=== PATIENT | female | born 1945 | race Caucasian/White ===

== ENCOUNTER 2016-06-26 05:10 | Inpatient (IN) | payer OTHER ==
[2016-06-03 15:13] LABS: BASO % 0.2 %; BASO ABS # 0.02 K/uL (0-0.2); COMPLETE YES; EOS % 3.3 %; HEMATOCRIT 43.7 % (37-47); IG% 0.2 %; LYMPH % 22.6 %; LYMPH ABS # 2.06 K/uL (1.2-3.4); MEAN CELL VOLUME 88.3 fL (80-100); MEAN CORPUSCULAR HEMOGLOBIN 29.9 pg (25-34); MEAN CORPUSCULAR HGB CONC 33.9 g/dl (32-36); MEAN PLATELET VOLUME 11.5 fL (7.4-10.4); MONO % 9.6 %; NEUT % 64.1 %; PLATELET COUNT 267 K/uL (130-400); RED BLOOD COUNT 4.95 M/uL (4.2-5.4); WHITE BLOOD COUNT 9.12 K/uL (4.8-10.8)
[2016-06-03 15:15] LABS: URINE APPEARANCE CLEAR (CLEAR); URINE BILIRUBIN NEG (NEG); URINE COLOR YELLOW; URINE EPITHELIAL CELL AUTO >30 /lpf (0-5); URINE NITRITE NEG (NEG); URINE SPECIFIC GRAVITY 1.002 (1.000-1.030); UROBILINOGEN NEG (NEG)
[2016-06-03 15:19] LABS: BLOOD UREA NITROGEN 17 mg/dl (7-18); BUN/CREATININE RATIO 18.3 (10-20); CALCIUM 8.7 mg/dl (8.5-10.1); CARBON DIOXIDE 23 mmol/L (21-32); CHLORIDE 107 mmol/L (98-107); CREATININE 0.92 mg/dl (0.60-1.20); GLUCOSE 97 mg/dl (70-99); POTASSIUM 4.3 mmol/L (3.5-5.1); SODIUM 141 mmol/L (136-145)
[2016-06-03 15:22] LABS: PARTIAL THROMBOPLASTIN RATIO 1.1; PROTHROMBIN TIME (PATIENT) 10.2 SECONDS (9.0-12.0)
[2016-06-03 15:29] LABS: MANUAL MICROSCOPIC REQUIRED? NO; REVIEW REQ? NO
--- NOTE | 2016-06-05 15:38 | HISTORY & PHYSICAL EXAMINATION ---
DATE OF ADMISSION: 06/26/2016 CHIEF COMPLAINT: Left hip pain. HISTORY OF PRESENT ILLNESS: This 71-year-old white female presents with complaints of left hip pain for over 2 years. Her pain had been stable until October of 2015. It became significantly worse at that time. She is now ambulatory with an antalgic gait. Pain is worse with weightbearing and is affecting her ADLs. She denies any numbness or tingling. She elects to proceed with left total hip arthroplasty in hopes of alleviating her pain. She previously had a right total hip arthroplasty 02/28/2016 and has done well with this. X-rays have been obtained. PAST MEDICAL HISTORY: Significant for osteoarthritis, GERD, and obesity. PREVIOUS SURGERIES: Left tib-fib ORIF 2000, tubal ligation in 1970, right total hip arthroplasty 02/28/2016. CURRENT MEDICATIONS: Benadryl b.i.d., ibuprofen 6 tablets daily, Percocet p.r.n., aspirin 81 mg daily. ALLERGIES: KNOWN ALLERGY TO MORPHINE AND AMPICILLIN. THESE CAUSE HIVES. She has had Ancef, fentanyl, Demerol, Percocet, and Dilaudid without issue. FAMILY HISTORY: Noncontributory. SOCIAL HISTORY: The patient is . Retired. No tobacco use, occasional ETOH use. REVIEW OF SYSTEMS: Significant for above stated conditions, otherwise unremarkable. PHYSICAL EXAMINATION: GENERAL: Well-developed, well-nourished elderly white female in no acute distress. Sitting on a bed. Alert and oriented. SKIN: Warm and dry with good turgor. No rashes or lesions. No ecchymosis or erythema. HEENT: Normocephalic, atraumatic. Eyes: PERRLA, EOMI. Nares patent bilaterally without turbinate enlargement. Oropharynx without erythema or exudate. No lesions noted. Uvula midline. Oral mucosa moist. Partial upper bridge is noted. LUNGS: Clear to auscultation bilaterally. No crackles, rhonchi or wheezing. Good air movement. HEART: RRR. No MGR. ABDOMEN: Bowel sounds present x4, soft, nontender to palpation. No organomegaly. MUSCULOSKELETAL: Left hip has no obvious asymmetry or deformity. There is discomfort with palpation over the anterior flexion crease, extending to the trochanter. Limited motion of the hip secondary to pain. Hip flexion to just above 90 degrees before onset of discomfort. Ambulatory with an antalgic gait. NEUROLOGIC: Gross sensation is intact across the left leg by soft touch. Cranial nerves II-XII are intact. DATA: Radiographic images previously obtained show end-stage DJD of the left hip. She has periarticular osteophytes, subchondral sclerosis, and joint space narrowing. IMPRESSION: Left hip end-stage degenerative joint disease. PLAN: Informed written consent was obtained to proceed with left total hip arthroplasty. Postoperative prescriptions for Percocet and Coumadin will be provided at discharge from the hospital. She already has a walker. She would like to attend [facility] for a few days postop. She has a previous EKG and chest x-ray from her February surgery. Preoperative ultrasound of both lower extremities was ordered to rule out preoperative DVT, given her recent surgery. New labs were ordered.
[2016-06-20 09:39] VITALS: BMI 27.0
[2016-06-26] VITALS (8 sets, daily range): BP systolic 100–134; BP diastolic 60–83; PULSE 72–93; TEMP 36.3–37.4; O2SAT 94–100; Ht 165.1 cm; Wt 77.5 kg
[~2016-06-26] VITALS: Ht 165.1 cm; Wt 77.5 kg
[~2016-06-26 05:10] MED LIST: ACET-1311 PO; ASPI-428 PO; B-COTAB18 PO; BND25 PO; CALC500C70 PO; CHOL100010 PO; CYAN500S5 PO; FERR18TA2 PO; IBUP-1459 PO; MAGNESIUM PO; MOME50SP5 NAE; NIAC50TA9 PO; POTA99TA PO; PYRI100T4 PO; THIA100T11 PO; VITAMIN K PO; ZINC1CAP PO; [UNRECOGNIZED DRUG - CODE] PO
[2016-06-26] MEDS ORDERED: CEFAZOLIN 2000 MG/60 ML D5W 60 ML IV SCH (06:00)
[2016-06-26] MEDS ORDERED: LACTATED RINGER'S 1000ML 1,000 ML IV SCH ×2 (06:00)
[2016-06-26] MEDS ORDERED: ROPIVACAINE 5MG/ML 30 ML 150 MG, BUPIVACAINE/EPINEPHR 0.5% MPF 30 ML, KETOROLAC TROMETH... INFIL SCH ×7 (06:00)
[2016-06-26] MEDS ORDERED: TRANEXAMIC ACID INJ 1,000 MG in SODIUM CHLORIDE 0.9% 100ML 100 ML IV SCH (06:00)
[2016-06-26] MEDS ORDERED: LACTATED RINGER'S 1000ML 500 ML IV ONE (06:00)
[2016-06-26] MEDS ORDERED: FENTANYL CITRATE INJ 50 MCG/1 ML 2 ML VIAL ONE (06:09)
[2016-06-26] MEDS ORDERED: MIDAZOLAM HCL 1 MG/ML 2ML VIAL ONE ×2 (06:09)
[2016-06-26] MEDS ORDERED: PROPOFOL IV EMULSION 10 MG/ML 20 ML VIAL IV ONE (06:10)
[2016-06-26] MEDS ORDERED: SUCCINYLCHOLINE CHLORIDE 20 MG/ML 10 ML VIAL IV ONE (06:15)
[2016-06-26] MEDS ORDERED: LIDOCAINE 2% 20 MG/ML 5ML SYR ONE (06:15)
[2016-06-26] MEDS ORDERED: ROCURONIUM BROMIDE 10 MG/ML 5 ML VIAL ONE (06:15)
--- NOTE | 2016-06-26 06:22 | History & Physical Bridge Note ---
H&P Re-Evaluation Bridge Note: I have examined the patient, reviewed the History & Physical and in the interval since the performance of the History & Physical I have noted the following changes of clinical significance: No changes noted
[2016-06-26] MEDS ORDERED: BUPIVACAINE 0.5 % 5 MG/1 ML PF 10ML VIAL ONE (06:24)
[2016-06-26] MEDS ORDERED: ORTHO JOINT ANESTHETIC ONE (06:26)
[2016-06-26] MEDS ORDERED: ONDANSETRON INJ 2 MG/ML 2 ML VIAL ONE (06:41)
[2016-06-26] MEDS ORDERED: ATROPINE SULFATE 0.1 MG/ML 5ML SYR IV PRN (07:15)
[2016-06-26] MEDS ORDERED: PHENYLEPHRINE 100MCG/ML 5ML SYR IV PRN (07:15)
[2016-06-26] MEDS ORDERED: ONDANSETRON INJ 2 MG/ML 2 ML VIAL IV PRN (07:15)
[2016-06-26] MEDS ORDERED: HYDROmorphone INJ 2 MG/ML SYR/VIAL IV PRN (07:15)
[2016-06-26] MEDS ORDERED: EpHEDrine SULFATE INJ 50 MG/ML AMP IV PRN (07:15)
[2016-06-26] MEDS ORDERED: PHENYLEPHRINE 100MCG/ML 5ML SYR ONE (07:39)
[2016-06-26] MEDS ORDERED: PHENYLEPHRINE HCL INJ 10 MG/ML VIAL ONE (07:39)
[2016-06-26] MEDS ORDERED: POVIDONE-IODINE OP SOLN 30 ML BTL TOP ONE (08:11)
--- NOTE | 2016-06-26 08:23 | [facility] Post Operative Brief Note ---
Immediate Operative Summary Operative Date Jun 26, 2016. Pre-Operative Diagnosis Left Hip Degenerative Joint Disease Post-Operative Diagnosis Same as Preop Procedure(s) Performed Left Total Hip Arthroplasty Uncemented Surgeon Dr. Crockett Waterproof Coating Machine Tender Surgeon(s) Roman Aguilar PA-C Estimated Blood Loss 100 ML Findings severe djd Fluids (cc crystalloids) 1100cc Specimens A. Left femoral Head Drains none Anesthesia spinal Complication(s) None Disposition Recovery Room / PACU
[2016-06-26] MEDS ORDERED: ALUMINUM/MAGNESIUM/SIMETH (MAALOX MAX) 30 ML UDC PO PRN (08:30)
[2016-06-26] MEDS ORDERED: HYDROmorphone INJ 1 MG/ML SYR IV PRN (08:30)
[2016-06-26] MEDS ORDERED: MAGNESIUM HYDROXIDE SUSP 30 ML UDC PO PRN (08:30)
[2016-06-26] MEDS ORDERED: BISACODYL 10 MG SUPP PR PRN (08:30)
[2016-06-26] MEDS ORDERED: DiphenhydrAMINE HCL 50 MG/ML VIAL IV PRN (08:30)
[2016-06-26] MEDS ORDERED: ACETAMINOPHEN 325 MG TAB PO PRN (08:30)
[2016-06-26] MEDS ORDERED: METOCLOPRAMIDE HCL INJ 5 MG/ML 2 ML VIAL IV PRN (08:30)
--- NOTE | 2016-06-26 08:41 | OPERATIVE REPORT ---
DATE OF OPERATION: 06/26/2016 PREOPERATIVE DIAGNOSIS: Osteoarthritis left hip. POSTOPERATIVE DIAGNOSIS: Same. OPERATION PERFORMED: Noncemented left total hip replacement. SURGEON: Dr. Crockett. BROADCAST OPERATIONS ENGINEER: Roman Aguilar PA-C. No resident or fellow available. PERIOPERATIVE SITUATION: Medically cleared female with intractable hip pain. She has failed conservative management. Physical exam, x-rays, MRI scan are consistent with the above diagnosis. They reveal substantial joint space narrowing, periarticular osteophyte formation and subchondral cysts. She had a total hip done on the other side and has done well. SUMMARY OF IMPLANTS: Size 52 acetabular shell sector cup, 6.5 x 30 screw, 6.5 x 15 screw, hole eliminator, 36 x 52 neutral liner, 5 standard stem. Head is 36 + 8.5. ESTIMATED BLOOD LOSS: 100 mL. FLUIDS: 1300 mL of crystalloid. OPERATION AND FINDINGS: PROCEDURE: The patient appropriately identified, site verified, consent verified, 2 grams of Ancef confirmed as being given. The left lower extremity was prepped and draped with the patient in the right lateral decubitus position. A posterior approach of the hip was utilized. Sharp dissection carried through skin and blunt dissection down to the fascia. The fascia was then incised under direct vision. Traction was then placed, short external rotators identified and released and capsule then teed. The hip dislocated, the femoral neck resected. Labrum excised. There was gross disease throughout both the head and the cup. Serial reaming carried up to a 52 and a 52 cup impacted into appropriate position. It was then secured with a 6.5 x 30 screw and a 6.5 x 15 screw. A trial liner then seated. The proximal femur was then delivered into the wound with flexion and internal rotation and the proximal femur prepared with the box spinner, canal finder, lateralizing rasp, and broaches to a size 5. A size 5 was trialed and 8.5 brought the leg lengths to within millimeters of equality. The hip was very stable in all planes. The hip was then dislocated. All remaining trial elements were removed, irrigated with Betadine, Pulsavac saline and then the permanent hole eliminator seated, the permanent liner seated, permanent head and neck seated and the hip reduced. It was stable in all planes. Leg lengths were equal. The wound was then irrigated one final time with Betadine and then Pulsavac and then short external rotators were repaired with heavy Vicryl. The fascial layer with heavy Vicryl, subcutaneous layer with 2-0 Vicryl and Orthomix injected into this layer and then the skin closed with stainless steel clips. Appropriate dressing applied and the patient was transferred to the recovery room in satisfactory condition having tolerated the procedure well. DVT prophylaxis per protocol. I attest to the content of the Intraoperative Record and any orders documented therein. Any exceptio ns are noted below.
--- NOTE | 2016-06-26 08:54 | Anesthesiology Progress Note ---
Anesthesia Post Op Note Date & Time Jun 26, 2016 at 08:54 Vital Signs Pain Intensity: 0 Vital Signs Past 12 Hours Date Time Temp Pulse Resp B/P Pulse Ox O2 Delivery O2 Flow Rate FiO2 06/26/16 08:50 36.5 79 14 101/63 99 Nasal Cannula 4 06/26/16 08:40 87 14 106/60 97 Nasal Cannula 4 06/26/16 08:30 85 14 100/58 100 Nasal Cannula 4 06/26/16 08:24 36.1 89 14 122/61 98 Nasal Cannula 4 06/26/16 05:37 36.8 93 18 117/74 95 Room Air Notes Mental Status: alert / awake / arousable, participated in evaluation Pt Amnestic to Procedure: Yes Nausea / Vomiting: adequately controlled Pain: adequately controlled Airway Patency, RR, SpO2: stable & adequate BP & HR: stable & adequate Hydration State: stable & adequate Anesthetic Complications: no major complications apparent
[2016-06-26] MEDS ORDERED: NON-FORMULARY MEDICATION (Potassium 99 MG) PO SCH (09:00)
--- NOTE | 2016-06-26 09:02 | DIAGNOSTIC IMAGING REPORT ---
PELVIS 1 OR 2 VIEW ROUTINE CLINICAL HISTORY: s/p Left hip CHOLO postoperative evaluation COMPARISON: 02/28/2016 DISCUSSION: Pre-existing total right hip arthroplasty. Mild heterotopic bone formation. Acute placement of a total left hip prosthetic. In position. No evidence for acetabular protrusion. Expected postoperative soft tissue change. IMPRESSION: Anatomic alignment status post total left hip replacement Electronically signed by: Bishop Shine M.D. 06/26/2016 9:01 AM Dictated Date/Time: 06/26/2016 9:00 AM
[2016-06-26] MEDS ORDERED: FLUTICASONE PROPIONATE NA SPR 16 GM BTL NAE PRN (09:45)
[2016-06-26] MEDS ORDERED: D5W AND 1/2NSS + 20MEQ KCL 1,000 ML IV SCH (09:45)
[2016-06-26] MEDS: ASPIRIN 81 MG ECTAB PO SCH (09:52)
[2016-06-26] MEDS: MULTIVITAMIN TAB PO SCH (09:52)
[2016-06-26] MEDS: NIACIN 50 MG TAB PO SCH (09:52)
[2016-06-26] MEDS: PANTOprazole SOD 40 MG TAB PO SCH (09:52)
[2016-06-26] MEDS: DOCUSATE SODIUM 100 MG CAP PO SCH ×2 (09:52→22:23)
[2016-06-26] MEDS: ACETAMINOPHEN IV 1,000 MG in EMPTY BAG 0 ML IV SCH ×2 (09:53→18:12)
[2016-06-26] MEDS: KETOROLAC TROMETHAMINE 15 MG/ML VIAL IV. SCH ×2 (12:03→18:15)
[2016-06-26] MEDS: FERROUS GLUCONATE 324 MG TAB PO SCH ×2 (12:20→18:11)
--- NOTE | 2016-06-26 12:43 | PROGRESS NOTE ---
DATE: 06/26/2016 Postop check status post left total hip replacement. The patient has already been up twice to the bathroom and is moving well. Neurovascular check is without any complaints of numbness or tingling. She notes no chest pain, shortness of breath, fever, chills, headache, nausea or vomiting. Vital signs are stable. She is afebrile. Wound dressing clean, dry and intact. Neurovascular checked, femoral sciatic nerve is good. X-ray postop looks excellent. ASSESSMENT: Doing well. She already ate and drank. Will have her discontinue the IV, Hep-Lock it and then continue p.o. Coumadin per nomogram.
--- NOTE | 2016-06-26 13:32 | OPERATIVE REPORT ---
DATE OF OPERATION: 06/26/2016 PREOPERATIVE DIAGNOSIS: Left hip end-stage degenerative joint disease. POSTOPERATIVE DIAGNOSIS: Left hip same. PROCEDURE: Left hip total hip arthroplasty using DePuy implants, uncemented plan. SURGEON: Dr. Crockett. WHITE LEAD GRINDER: Roman Aguilar PA-C. HISTORY OF PRESENT ILLNESS: This 71-year-old white female presented to the office with complaints of intractable left hip pain. She had tried conservative care measures including activity modification, physical therapy, and oral pain medication without improvement. Pain was affecting her ADLs. She elected to proceed with surgical intervention in hopes of alleviating her discomfort. Preoperative x-rays were obtained. OPERATION: The patient was administered spinal anesthetic and then taken to the operating room where she was given sedation. She was prepped and draped in the usual sterile fashion. Please see Dr. Crockett's operative report for specifics of the procedure. I was present for the entire case from initial patient positioning through final wound closure. Assistance was provided in tissue retraction, hemostasis, trial implant placement, final implant placement, hip reduction, and final wound closure. The patient was taken to the recovery room in satisfactory condition. I attest to the content of the Intraoperative Record and any orders documented therein. Any exceptio ns are noted below.
[2016-06-26] MEDS ORDERED: TRANEXAMIC ACID INJ 1,000 MG in SODIUM CHLORIDE 0.9% 100ML 100 ML IV ONE (14:30)
[2016-06-26] MEDS: CEFAZOLIN IV 2,000 MG in DEXTROSE 5% 50ML 50 ML IV SCH ×2 (14:37→22:23)
[2016-06-26] MEDS: ONDANSETRON INJ 2 MG/ML 2 ML VIAL IV PRN (15:16)
[2016-06-26] MEDS: OXYCODONE HCL IR 5 MG TAB (IMMEDIATE RELEASE) PO PRN (15:31)
[2016-06-26] MEDS ORDERED: WARFARIN SOD 5 MG TAB PO SCH (16:00)
[2016-06-26] MEDS ORDERED: WARF2TAB PO (16:05)
[2016-06-26] MEDS ORDERED: OXYC-57 PO (16:05)
[2016-06-27] MEDS: KETOROLAC TROMETHAMINE 15 MG/ML VIAL IV. SCH ×2 (00:43→05:43)
[2016-06-27] MEDS: ACETAMINOPHEN IV 1,000 MG in EMPTY BAG 0 ML IV SCH (02:09)
[2016-06-27 03:07] VITALS: BP 98/64; PULSE 84; TEMP 36.9; O2SAT 96
[2016-06-27 06:52] LABS: BASO % 0.1 %; BASO ABS # 0.01 K/uL (0-0.2); COMPLETE YES; EOS % 0.7 %; HEMATOCRIT 37.5 % (37-47); IG% 0.3 %; LYMPH % 9.9 %; MEAN CELL VOLUME 88.2 fL (80-100); MEAN CORPUSCULAR HEMOGLOBIN 29.4 pg (25-34); MEAN CORPUSCULAR HGB CONC 33.3 g/dl (32-36); MEAN PLATELET VOLUME 11.2 fL (7.4-10.4); MONO % 8.6 %; NEUT % 80.4 %; PLATELET COUNT 262 K/uL (130-400); RED BLOOD COUNT 4.25 M/uL (4.2-5.4); WHITE BLOOD COUNT 15.22 K/uL (4.8-10.8)
[2016-06-27] MEDS: OXYCODONE HCL IR 5 MG TAB (IMMEDIATE RELEASE) PO PRN ×2 (07:00→20:21)
--- NOTE | 2016-06-27 07:00 | PROGRESS NOTE ---
DATE: 06/27/2016 Postop day 1 status post left total hip replacement. The patient is comfortable, is moving well. Denies chest pain, shortness of breath, fever or chills. Denies headache, nausea, vomiting. Vital signs are stable. She is afebrile. Neurovascular check is normal. Hip motion is excellent. ASSESSMENT: Overall, doing well A.m. labs pending. Coumadin per nomogram. Continue PT, OT. Dressing change later today. Likely home with home health.
[2016-06-27 07:02] VITALS: BP 108/69; PULSE 85; TEMP 36.9; O2SAT 97
[2016-06-27 07:10] LABS: INR 1.1 (0.9-1.1); PROTHROMBIN TIME (PATIENT) 11.6 SECONDS (9.0-12.0)
--- NOTE | 2016-06-27 07:14 | DISCHARGE SUMMARY ---
DISCHARGE DATE: Evening of 06/27/16 versus morning of 06/28/16. CHIEF COMPLAINT: Left hip pain. HISTORY OF PRESENT ILLNESS: A 71-year-old female admitted for elective left total hip replacement. She tolerated the procedure well. She is ambulating well. PAST MEDICAL HISTORY: Remarkable for osteoarthritis, GERD, and obesity. PAST SURGICAL HISTORY: Include ORIF of tibia, tubal ligation, right total hip replacement. PREADMISSION MEDICATIONS: Include Benadryl b.i.d., ibuprofen daily, Percocet p.r.n., aspirin 81 daily. She will continue her Benadryl, her Percocet as needed, aspirin 81 mg daily, and Coumadin to keep INR 1.8-2.2. Discontinue the ibuprofen. ALLERGIES: MORPHINE, AMPICILLIN WHICH CAUSES HIVES. She has had Ancef, Fentanyl, Demerol, Percocet and Dilaudid without issue. FAMILY HISTORY: Noncontributory. SOCIAL HISTORY: Reveals she is , retired. No tobacco or alcohol use. REVIEW OF SYSTEMS: Reveals no chest pain, shortness of breath, fever or chills. Pertinent exam reveals an intact wound and neurovascular check normal. Hip located and moves well. Calves nontender. ASSESSMENT: Overall, doing well status post left total hip replacement. Discharge pending clearance with PT, OT either later today or on Friday morning. Discharge on 4 mg Coumadin per day, keep INR 1.8-2.2.
[2016-06-27 07:21] LABS: BUN/CREATININE RATIO 14.8 (10-20); CALCIUM 8.2 mg/dl (8.5-10.1); CREATININE 0.99 mg/dl (0.60-1.20)
[2016-06-27] MEDS ORDERED: DEXAMETHASONE INJ 10 MG in SYRINGE 0 ML IV ONE (07:30)
[2016-06-27] MEDS: FERROUS GLUCONATE 324 MG TAB PO SCH ×3 (08:30→17:43)
--- NOTE | 2016-06-27 08:30 | Discharge Instructions ---
Discharge Instructions Admission Reason for Admission: Left Hip Degenerative Joint Disease Discharge Discharge Diagnosis / Problem: Left hip s/p total hip replacement Discharge Goals Goal(s): Decrease discomfort, Improve function, Increase independence Activity Recommendations Activity Limitations: as noted below Lifting Limitations: gradually increase as tolerated Exercise/Sports Limitations: until after follow-up appointment Shower/Bathe: keep incision dry Driving or Machine Use: No driving until cleared by Dr. Crockett Weightbearing Status: Left weightbearing (as tolerated) . Instructions / Follow-Up Instructions / Follow-Up New Medicine: * You will likely be taking one or more of these medicines: 1. Percocet - Take, as directed, when you need it, every four to six hours to control your pain. 2. Iron Sulfate - Take three times each day for the month after surgery to help you replace the blood lost during surgery. 3. Coumadin - Thins your blood to lessen the chance of forming a blood clot. The dose of this is different for each person and is based on your blood tests that are done twice a week. * The most common side effects of pain medicine and iron are nausea and constipation. If nausea or constipation is too much of a problem or if you have any questions about your new medicines or doses, call [facility] at . We will try to help you manage these issues. VERY IMPORTANT TO READ AND REVIEW" Blood Clots and Blood Thinning Medicine: * You are given Coumadin during the immediate post-operative period to lessen the risk of blood clots forming in your legs and/or lungs. Coumadin is usually given for six weeks after surgery. * The prescription is for 2 mg tablets. At discharge, you should understand your dose and take it all at the same time every day, preferably after dinner. * You need to get your blood checked 1 - 2 times per week for six weeks, or as directed. * If your dose needs to change, we will call you. Do not take your medication on the day of the blood test until we call you. * If you don't hear from us after your blood draws, keep taking the same dose. Pain: * The immediate post-operative period after hip replacement surgery is often quite painful. * You are given a prescription for pain medicine. You should take it, as directed, when you need it, especially before physical therapy and before going to bed. Pain that interferes with sleep is very common and can last several months. * You will likely need pain medicine for the first two to four weeks. It will not stop all of the pain. The pain will lessen and as you feel better, you may change to milder pain medicine such as Tylenol. * The most common side effects of pain medicine are nausea and constipation, so don't take more than you need. Physical Therapy: * Follow the "Hip Precautions Instructions." * In some cases, the social studies teacher at the hospital will arrange to have a therapist come to your house for the first couple of weeks to help you learn these skills. * You need to practice on your own or with the help of a family member as needed. * When you learn these skills, most of the therapy can be done on your own. Home Exercise: * You were shown a series of exercises in the hospital. Do these exercises three to four times each day including the exercises you were shown in physical therapy. Walking: * Get up and walk several times each day. For the first four weeks, try not to stand or walk for more than one hour at a time. If you do stand or walk for more than one hour, you will not hurt anything, but your leg will likely swell. * As you feel comfortable, you may change from the walker or crutches to a cane and then to independent walking. SELF CARE INSTRUCTIONS AFTER TOTAL HIP REPLACEMENT Until the incision and soft tissues around your hip have healed, there is a possibility that the hip prosthesis could dislocate. A. Observe the following precautions to prevent dislocation: 1. Don't bend your hip greater than 90 degrees. 2. Avoid crossing your legs or ankles while standing or lying. 3. Sit with your feet placed 6 inches apart. 4. When sitting, keep your knees below your hips. Sit on a firm surface, avoid deep, soft chairs and couches. Use an elevated toilet seat in the bathroom. 5. Don't bend over at the waist. Use a long handled shoehorn and a sock aid to help you put on your shoes and socks. A underground truck operator can help you pick up driver objects that are too high or too low to reach. 6. Keep car riding to a minimum for at least one month after surgery. B. Your balance may be shaky for a while. Use crutches or a walker until directed by your doctor. C. Use hand rails when walking on stairs. D. Wear low heeled shoes with non-slip soles. E. Be sure that your floors are free of things that could trip you - throw rugs , electrical cords, small objects. Avoid wet and waxed floors, especially with crutches and canes. F. Try to walk several times a day with rest periods between. G. Continue with all the exercises taught to you in the hospital. Again, make walking a part of your daily routine. VERY IMPORTANT TO READ AND REVIEW A. Take Coumadin, or Lovenox (blood thinning medications) as directed by your doctor. If you are on Coumadin, have a pro-time (blood test) drawn according to your doctor's instructions. This will tell the doctor how well the Coumadin is thinning your blood. B. There are a few signs you need to watch for after you are home. If you notice any of the followin. Increased severe hip pain. Some pain is expected especially when you exercise. 2. Increased swelling in your leg or knee; pain or swelling of the calf muscle in either lower leg. 3. Any fluid drainage from the incision. 4. Shortness of breath or chest pain. TEDs/Elastic Stockings: * The white elastic stockings help limit swelling and prevent blood clots from forming in your legs. The more you wear them, the more they work. * Wear them for six weeks. Prevention of Infection: * Take antibiotics one hour before any dental cleaning, dental work, urological procedure, gastrointestinal procedure or any invasive surgery in order to prevent your new joint from getting infected. * You may get the antibiotics from the doctor performing the procedure or we will call in a prescription to the pharmacy of your choice. Call the office for a prescription at least 2 days prior to your appointment. Things to Watch For: * Drainage from the incision site that occurs more than one week after your surgery. * Severely increased leg pain or swelling. * Increased redness at the incision site. * Fever above 101 degrees Fahrenheit. * Unusual chest pain or shortness of breath. * Unusual pain or burning with urination. Current Hospital Diet Patient's current hospital diet: AHA Diet (Heart Healthy) Discharge Diet Recommended Diet: AHA Diet (Heart Healthy) Procedures Procedures Performed: Left Total Hip Arthroplasty Uncemented Pending Studies Studies pending at discharge: no Medical Emergencies . Who to Call and When: Medical Emergencies: If at any time you feel your situation is an emergency, please call 911 immediately. . Non-Emergent Contact Non-Emergency issues call your: Primary Care Provider, Surgeon Call Non-Emergent contact if: temperature is above 100.5, wound has increased drainage, wound has increased redness, wound has increased pain, you have any medication questions . "Provider Documentation" section prepared by Roman Aguilar PA-C. VTE Core Measure Inpt VTE Proph given/why not?: Warfarin (Coumadin), T.E.D. Stockings, SCD's
--- NOTE | 2016-06-27 08:33 | Orthopedic Progress Note ---
Orthopedic Progress Note Date of Service Jun 27, 2016. Subjective Post OP Day: 1 Reports: feeling well, nausea / vomiting (nauseated now, no vomiting), pain controlled w PO medications, Denies: SOB, chest pain, complaints, light headedness Objective calves soft nontender, N/V intact, hip located, capillary refill less than 2 sec., dressing C/D/I, incision C/D/I, A&O x3, toes mobile, CMS intact wound looks good, moderate drainage on dressings, no active bleeding Date Time Temp Pulse Resp B/P Pulse Ox O2 Delivery O2 Flow Rate FiO2 06/27/16 08:04 Room Air 06/27/16 07:02 36.9 85 16 108/69 97 Room Air 06/27/16 03:07 36.9 84 16 98/64 96 Room Air 06/26/16 23:53 37.1 76 17 101/63 97 Room Air 06/26/16 23:30 Room Air 06/26/16 15:22 37.4 72 17 134/83 95 Room Air 06/26/16 15:15 Room Air 06/26/16 12:19 83 114/63 94 06/26/16 11:03 36.4 74 17 121/75 100 Nasal Cannula 3.0 06/26/16 10:06 36.7 77 17 105/67 100 Room Air 3.0 06/26/16 09:31 36.3 75 17 100/60 98 Nasal Cannula 3.0 06/26/16 09:05 Nasal Cannula 2.0 06/26/16 09:05 Nasal Cannula 2.0 06/26/16 09:05 36.3 79 16 101/67 99 Nasal Cannula 2.0 06/26/16 08:57 77 14 109/63 100 Nasal Cannula 4 06/26/16 08:50 36.5 79 14 101/63 99 Nasal Cannula 4 06/26/16 08:40 87 14 106/60 97 Nasal Cannula 4 Laboratory Results 24 Hours: Test 06/27/16 05:20 White Blood Count 15.22 K/uL Red Blood Count 4.25 M/uL Hemoglobin 12.5 g/dL Hematocrit 37.5 % Mean Corpuscular Volume 88.2 fL Mean Corpuscular Hemoglobin 29.4 pg Mean Corpuscular Hemoglobin Concent 33.3 g/dl Platelet Count 262 K/uL Mean Platelet Volume 11.2 fL Neutrophils (%) (Auto) 80.4 % Lymphocytes (%) (Auto) 9.9 % Monocytes (%) (Auto) 8.6 % Eosinophils (%) (Auto) 0.7 % Basophils (%) (Auto) 0.1 % Neutrophils # (Auto) 12.26 K/uL Lymphocytes # (Auto) 1.50 K/uL Monocytes # (Auto) 1.31 K/uL Eosinophils # (Auto) 0.10 K/uL Basophils # (Auto) 0.01 K/uL Prothromb Time International Ratio 1.1 Prothrombin Time 11.6 SECONDS Assessment & Plan Assessment: post op day 1 Left total hip arthroplasty Plan: PT/OT today anticipate D/C to home tomorrow morning with home health coumadin per nomogram today dressing changed this morning-wound looks good Discharge Planning Discharge Planning: home with home health Pain Management: Percocet DVT Prophylaxis: TEDs, SCDs, Coumadin Therapy: Physical Therapy
[2016-06-27] MEDS: ONDANSETRON INJ 2 MG/ML 2 ML VIAL IV PRN (08:34)
[2016-06-27] MEDS: DOCUSATE SODIUM 100 MG CAP PO SCH ×2 (09:34→20:31)
[2016-06-27] MEDS: PANTOprazole SOD 40 MG TAB PO SCH (09:34)
[2016-06-27] MEDS: NIACIN 50 MG TAB PO SCH (09:38)
[2016-06-27] MEDS: MULTIVITAMIN TAB PO SCH (09:38)
[2016-06-27] MEDS: ASPIRIN 81 MG ECTAB PO SCH (09:38)
--- NOTE | 2016-06-27 09:51 | Anesthesiology Progress Note ---
Anesthesia Post Op Note Date & Time Jun 27, 2016 at 09:50 Vital Signs Pain Intensity: 2.0 Vital Signs Past 12 Hours Date Time Temp Pulse Resp B/P Pulse Ox O2 Delivery O2 Flow Rate FiO2 06/27/16 08:04 Room Air 06/27/16 07:02 36.9 85 16 108/69 97 Room Air 06/27/16 03:07 36.9 84 16 98/64 96 Room Air 06/26/16 23:53 37.1 76 17 101/63 97 Room Air 06/26/16 23:30 Room Air Notes Mental Status: alert / awake / arousable, participated in evaluation Pt Amnestic to Procedure: Yes Nausea / Vomiting: adequately controlled Pain: adequately controlled Airway Patency, RR, SpO2: stable & adequate BP & HR: stable & adequate Hydration State: stable & adequate Neuraxial Anesthesia: sensory block resolved Anesthetic Complications: no major complications apparent
[2016-06-27 11:34] VITALS: BP 110/70; PULSE 93; TEMP 36.9; O2SAT 96
[2016-06-27 15:28] VITALS: BP 104/70; PULSE 89; TEMP 36.9; O2SAT 96
[2016-06-27] MEDS ORDERED: WARFARIN SOD 5 MG TAB PO SCH (16:00)
[2016-06-27 22:48] VITALS: BP 107/68; PULSE 80; TEMP 37; O2SAT 97
[2016-06-28 06:01] VITALS: BP 109/62; PULSE 76; TEMP 37; O2SAT 94
[2016-06-28 06:54] LABS: INR 1.1 (0.9-1.1); PROTHROMBIN TIME (PATIENT) 11.8 SECONDS (9.0-12.0)
--- NOTE | 2016-06-28 07:10 | PROGRESS NOTE ---
DATE: 06/28/2016 HISTORY OF PRESENT ILLNESS: Postop day #2 status post left total hip placement. The patient has no real complaints. She has no nausea, vomiting, headache, shortness breath, fever or chills. PHYSICAL EXAMINATION: Vital signs are stable. She is afebrile. Wound dressing clean, dry and intact. Hip is located. Neurovascular check femoral sciatic nerve good. Abdomen is soft, nontender. Calves nontender. LABORATORY DATA: INR is 1.1. ASSESSMENT AND PLAN: Coumadin per nomogram today. We will discharge on 4 mg Coumadin. Check INR on Friday. Keep wound dressed until Friday. Followup arranged in 2 weeks. Home health services being arranged by [employer].
--- NOTE | 2016-06-28 07:11 | DISCHARGE SUMMARY ---
ADDENDUM: At this point, the patient is ready for discharge. We will discharge on 4 mg Coumadin per day. Home health arrangements per social media manager. Follow up in roughly 2 weeks.
[2016-06-28] MEDS: PANTOprazole SOD 40 MG TAB PO SCH (07:56)
[2016-06-28] MEDS: MULTIVITAMIN TAB PO SCH (07:56)
[2016-06-28] MEDS: FERROUS GLUCONATE 324 MG TAB PO SCH (07:56)
[2016-06-28] MEDS: DOCUSATE SODIUM 100 MG CAP PO SCH (07:56)
[2016-06-28] MEDS: ASPIRIN 81 MG ECTAB PO SCH (07:56)
[2016-06-28] MEDS: NIACIN 50 MG TAB PO SCH (07:56)
[2016-06-28] MEDS: OXYCODONE HCL IR 5 MG TAB (IMMEDIATE RELEASE) PO PRN (07:57)
[2016-06-28 08:22] VITALS: BP 115/62; PULSE 94; TEMP 37.4; O2SAT 97
[2016-06-28 08:31] VITALS: BP 115/62; PULSE 94; TEMP 37.4; O2SAT 97
--- NOTE | 2016-06-28 08:38 | Progress Note ---
Orthopedic SOAP Note Subjective Date of Service: Jun 28, 2016. Post OP Day: 2 Reports: feeling well, pain controlled w PO medications, Denies: SOB, calf pain , chest pain, complaints, light headedness, nausea / vomiting, using SENIOR MEDICAL TECHNOLOGIST Objective calves soft nontender, N/V intact, hip located, capillary refill less than 2 sec., dressing C/D/I (essentially no drainage at all on yesterday's dressing ), incision C/D/I, A&O x3, toes mobile Date Time Temp Pulse Resp B/P Pulse Ox O2 Delivery O2 Flow Rate FiO2 06/28/16 08:31 37.4 94 20 97 Room Air 06/28/16 08:22 37.4 94 20 115/62 97 Room Air 06/28/16 07:25 Room Air 06/28/16 06:01 37.0 76 16 109/62 94 Room Air 06/28/16 00:10 Room Air 06/27/16 22:48 37.0 80 17 107/68 97 Room Air 06/27/16 15:45 Room Air 06/27/16 15:28 36.9 89 17 104/70 96 Room Air 06/27/16 11:34 36.9 93 16 110/70 96 Room Air Laboratory Results 24 Hours: Test 06/28/16 06:08 Prothromb Time International Ratio 1.1 Prothrombin Time 11.8 SECONDS Assessment post op day 2 Left total hip arthroplasty Plan PT/OT today anticipate D/C to home today after PT with [facility] per nomogram today will go home on 4mg of coumadin recheck INR Friday dressing changed this morning-wound looks great total hip precautions strictly reinforced WBAT left L.E. and walker abduction pillow while in bed resume diet ice left hip pain control with prescribed medications follow up with Dr. Crockett in 2 weeks, already scheduled
[2016-06-28 08:46] VITALS: O2SAT 97
[2016-06-28] MEDS ORDERED: WARFARIN SOD 6 MG TAB PO SCH (16:00)
== END 2016-06-28 10:04 | disposition home health service (06) | DRG 470 ==
LOC: ENRESERVDT → ENRESERVTM → C.ACU 05:10 → C.3E 08:30
PROVIDERS: ADMIT Physical Medicine & Rehabilitation Sports Medicine; ATTEND Physical Medicine & Rehabilitation Sports Medicine
PROC: 0SRB0JA Replacement of Left Hip Joint with Synthetic Substitute, Uncemented, Open Approach (ICD-10-PCS; principal; 2016-06-26 07:00)
DX: M16.12 Unilateral primary osteoarthritis, left hip (principal); E66.9 Obesity, unspecified; Z68.27 Body mass index [BMI] 27.0-27.9, adult; Z96.641 Presence of right artificial hip joint; Z79.1 Long term (current) use of non-steroidal anti-inflammatories (NSAID); Z79.82 Long term (current) use of aspirin; Z88.1 Allergy status to other antibiotic agents; Z88.5 Allergy status to narcotic agent; Z98.890 Other specified postprocedural states

== ENCOUNTER → 2016-07-01 | Outpatient (CLI) | payer OTHER ==
[~2016-07-01] MED LIST changes: +DIAZ-165 PO; -IBUP-1459 PO; +MOME6000; +OXYC-57 PO; +VITACAP26 PO; -VITAMIN K PO; +WARF2TAB PO
[2016-07-01 11:00] LABS: INR 1.5 (0.9-1.1); PROTHROMBIN TIME (PATIENT) 15.8 SECONDS (9.0-12.0)
== END | disposition home or self-care (01) ==
LOC: C.LABSPEC 10:32
PROVIDERS: ATTEND Physical Medicine & Rehabilitation Sports Medicine
DX: Z79.01 Long term (current) use of anticoagulants (principal); Z51.81 Encounter for therapeutic drug level monitoring

== ENCOUNTER → 2016-07-05 | Outpatient (CLI) | payer OTHER ==
[2016-07-05 12:05] LABS: INR 2.2 (0.9-1.1)
--- NOTE | 2016-07-08 09:20 | CODING QUERY NO DIAGNOSIS ---
Valid Physician Order Needed 43 A valid physician order must be submitted in order to properly bill for the service(s) provided, including date of service(s), valid diagnosis, and physician signature. If these tests are done on a recurring basis the original physician order must be submitted in order to code and bill for the service(s) provided. Please fax us the original, signed physician order so that we may expedite billing to [phone] DOS 07/05/16 * PROTHROMBIN TIME Thank you Maria Fernanda [facility] Information Management
== END | disposition home or self-care (01) ==
LOC: C.LABSPEC 11:44
PROVIDERS: ATTEND Physical Medicine & Rehabilitation Sports Medicine
DX: Z47.1 Aftercare following joint replacement surgery (principal); Z96.643 Presence of artificial hip joint, bilateral; M19.91 Primary osteoarthritis, unspecified site; Z79.01 Long term (current) use of anticoagulants

== ENCOUNTER → 2016-07-12 | Outpatient (CLI) | payer OTHER ==
[2016-07-12 12:24] LABS: INR 1.6 (0.9-1.1)
== END | disposition home or self-care (01) ==
LOC: C.LABSPEC 11:10
PROVIDERS: ATTEND Physical Medicine & Rehabilitation Sports Medicine
DX: Z79.01 Long term (current) use of anticoagulants (principal); Z51.81 Encounter for therapeutic drug level monitoring

== ENCOUNTER → 2016-08-12 | Outpatient (CLI) | payer OTHER | END | disposition home or self-care (01) | LOC: C.RDSM 08:00 | PROVIDERS: ATTEND Physical Medicine & Rehabilitation Sports Medicine | DX: M16.0 Bilateral primary osteoarthritis of hip (principal) ==

== ENCOUNTER → 2016-12-06 | Outpatient (CLI) | payer OTHER ==
--- NOTE | 2016-12-06 10:27 | DIAGNOSTIC IMAGING REPORT ---
PELVIS AND BILATERAL HIPS 3 VIEWS CLINICAL HISTORY: Bilateral total hip arthroplasty. Follow-up examination. COMPARISON: 06/26/2016 DISCUSSION: There are postsurgical changes of bilateral total hip arthroplasties. There is increasing heterotopic ossification located superomedial to each greater trochanter. There are no acute fractures. There is no dislocation. IMPRESSION: 1. Bilateral total hip arthroplasties 2. Moderate heterotopic ossification located superior medial to each greater trochanter Electronically signed by: John Rodriguez M.D. 12/06/2016 10:26 AM Dictated Date/Time: 12/06/2016 10:24 AM
== END | disposition home or self-care (01) ==
LOC: C.RDSM 10:02
PROVIDERS: ATTEND Physician Assistant
DX: Z96.642 Presence of left artificial hip joint (principal)

== ENCOUNTER 2017-02-02 07:42 | Emergency (ER) | payer OTHER ==
[~2017-02-02] VITALS: Ht 162.6 cm; Wt 81.6 kg
[~2017-02-02 07:42] MED LIST changes: -DIAZ-165 PO; -MOME6000; -OXYC-57 PO; -VITACAP26 PO; -WARF2TAB PO
[2017-02-02 07:51] VITALS: Ht 162.6 cm; Wt 81.6 kg
[2017-02-02] MEDS ORDERED: DIAZEPAM INJ 5 MG/ML 2 ML CARP IV STA ×2 (08:02→09:27)
[2017-02-02] MEDS ORDERED: SODIUM CHLORIDE 0.9% 1000ML 1,000 ML IV STA (08:02)
[2017-02-02] MEDS ORDERED: ONDANSETRON 8 MG/54 ML D5W IV STA (08:02)
[2017-02-02 08:17] VITALS: O2SAT 98
[2017-02-02] MEDS ORDERED: VITACAP26 PO (08:43)
[2017-02-02] MEDS ORDERED: MOME6000 (08:43)
--- NOTE | 2017-02-02 08:51 | DIAGNOSTIC IMAGING REPORT ---
HEAD WITHOUT CONTRAST (CT) CT DOSE: 537.48 mGy.cm HISTORY: Mental status change DIZZINESS TECHNIQUE: Multiaxial CT images of the head were performed without the use of intravenous contrast. A dose lowering technique was utilized adhering to the principles of ALARA. Comparison: None. Findings: The paranasal sinuses and mastoid air cells are clear. The calvarium and skull base are intact. The ventricles and sulci are within normal limits. There is no mass, hematoma, midline shift, or acute infarct. Impression: No acute intracranial abnormality. The above report was generated using voice recognition software. It may contain grammatical, syntax or spelling errors. Electronically signed by: Bishop Shine M.D. 02/02/2017 8:50 AM Dictated Date/Time: 02/02/2017 8:49 AM
[2017-02-02 08:52] LABS: BASO % 0.1 %; BASO ABS # 0.01 K/uL (0-0.2); COMPLETE YES; IG% 0.5 %; LYMPH % 14.3 %; LYMPH ABS # 1.31 K/uL (1.2-3.4); MEAN CELL VOLUME 92.6 fL (80-100); MEAN CORPUSCULAR HEMOGLOBIN 30.8 pg (25-34); MEAN CORPUSCULAR HGB CONC 33.3 g/dl (32-36); MEAN PLATELET VOLUME 11.3 fL (7.4-10.4); MONO % 6.3 %; NEUT % 77.8 %; PLATELET COUNT 210 K/uL (130-400); RED BLOOD COUNT 4.97 M/uL (4.2-5.4); WHITE BLOOD COUNT 9.17 K/uL (4.8-10.8)
[2017-02-02 09:20] LABS: BUN/CREATININE RATIO 26.4 (10-20); CALCIUM 8.7 mg/dl (8.5-10.1); CREATININE 0.91 mg/dl (0.60-1.20); POTASSIUM 3.9 mmol/L (3.5-5.1)
[2017-02-02 09:29] LABS: THYROID STIMULATING HORMONE 1.77 uIu/ml (0.300-4.500)
[2017-02-02 10:01] VITALS: TEMP 37
[2017-02-02 12:21] LABS: URINE APPEARANCE CLEAR (CLEAR); URINE BILIRUBIN NEG (NEG); URINE COLOR YELLOW; URINE NITRITE NEG (NEG); URINE SPECIFIC GRAVITY 1.023 (1.000-1.030); UROBILINOGEN NEG (NEG)
[2017-02-02 12:32] LABS: MANUAL MICROSCOPIC REQUIRED? NO; REVIEW REQ? NO
[2017-02-02] MEDS ORDERED: DIAZEPAM 5MG TAB PO STA (15:25)
[2017-02-02] MEDS ORDERED: DIAZ-165 PO (15:26)
--- NOTE | 2017-02-02 15:54 | EMERGENCY ROOM VISIT NOTE ---
History Report prepared by Nj: Natalee Gonzalez Under the Supervision of: Dr. Nixon Steve M.D. First contact with patient: 07:50 Chief Complaint: VERTIGO Stated Complaint: NAUSEA History of Present Illness The patient is a 71 year old female who presents to the Emergency Room with complaints of sudden vertigo beginning about 4 hours prior to arrival. The patient reports that she was nauseous and started to vomit. She also reports having diarrhea and ringing in her right ear. She reports that moving exacerbates the pain and that closing her eyes alleviates the pain. The patient reports having these symptoms about 1 year ago and was seen in the ED. Pt denies LOC, headache, fevers, chills, diaphoresis, visual changes, neck pain, chest pain, breathing difficulties, abdominal pain, back pain, melena, hematochezia, urinary symptoms, numbness, lymphadenopathy, rash, or other complaints. Source of History: patient Onset: 4 hours prior to arrival Position: other (global) Quality: other (vertigo ) Timing: other (sudden) Modifying Factors (Worsening): movement Modifying Factors (Relieving): other (closing eyes ) Associated Symptoms: + nausea, + vomiting, + diarrhea, No fevers Note: additional symptom: ringing in right ear Review of Systems See HPI for pertinent positives and negatives. A total of ten systems were reviewed and were otherwise negative. 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 Surgical Problems: (1) Cataract Family History Cancer FHx: mitral valve repair FHx: stroke Social History Smoking Status: Never Smoker Alcohol Use: occasionally Marital Status: Housing Status: lives with significant other Occupation Status: retired Current/Historical Medications Scheduled Vitamins C & E (Vitamin C), 1 CAP PO DAILY Scheduled PRN Diazepam (Valium), 5 MG PO Q6H PRN for Dizziness or Vertigo Miscellaneous Medications Mometasone Furoate (Nasal) (Mometasone Furoate) Allergies Coded Allergies: Morphine (Verified Allergy, Severe, CHEST TIGHTNESS, RASH, DYSPNEA, ) Ampicillin (Verified Allergy, Unknown, SEVERE HIVES, 02/02/17) Alendronate (Verified Adverse Reaction, Unknown, GI SYMPTOMS, 02/02/17) Black Pepper (Verified Adverse Reaction, Unknown, COUGHING, 02/02/17) Physical Exam Vital Signs Date Time Temp Pulse Resp B/P (MAP) Pulse Ox O2 Delivery O2 Flow Rate FiO2 02/02/17 15:17 80 18 118/74 98 Room Air 02/02/17 14:10 77 17 95 02/02/17 14:00 102/54 02/02/17 13:55 80 14 94 02/02/17 13:40 78 19 98 02/02/17 13:31 113/62 02/02/17 13:25 83 28 98 02/02/17 13:10 83 28 98 02/02/17 13:09 120/73 02/02/17 13:00 126/84 02/02/17 12:55 81 14 93 02/02/17 12:40 78 16 96 02/02/17 12:31 111/71 02/02/17 12:25 79 18 98 02/02/17 12:10 79 16 99 02/02/17 12:05 91 21 94 02/02/17 12:01 139/79 02/02/17 11:50 79 18 99 02/02/17 11:35 82 17 98 02/02/17 11:31 121/77 02/02/17 11:20 83 17 96 02/02/17 11:05 81 19 99 02/02/17 11:00 103/64 02/02/17 10:50 79 13 98 02/02/17 10:45 77 17 99 02/02/17 10:01 37.0 93/66 02/02/17 09:57 80 15 97 02/02/17 09:42 76 25 94 02/02/17 09:31 127/72 02/02/17 09:27 68 16 100 02/02/17 09:12 61 16 100 02/02/17 09:06 72 18 131/77 99 Room Air 02/02/17 09:05 131/77 02/02/17 08:17 98 Room Air 02/02/17 07:51 36.8 54 18 158/82 97 Room Air Physical Exam GENERAL: Awake, alert, uncomfortable appearing, actively vomiting. HENT: Normocephalic, atraumatic. TM's normal. Oropharynx unremarkable. EYES: PERRL. EOMI. Normal conjunctiva. Sclera non-icteric. NECK: Supple. No nuchal rigidity. FROM. No JVD or bruit. RESPIRATORY: CTA CARDIAC: Bradycardia and regular rhythm. No murmur. ABDOMEN: Soft, non distended. No tenderness to palpation. No rebound or guarding. No masses. RECTAL: Deferred. MUSCULOSKELETAL: Unremarkable. No edema. No discoloration. Gross motor strength symmetric. NEURO: Cranial nerves 2-12 grossly intact. Normal sensorium. No sensory or motor deficits noted. Speech normal. No pronator drift. Lateral nystagmus noted with fast beat to the right and fatigable. No pathologic nystagmus. Normal rapid alternating movements. SKIN: No rash or jaundice noted. LYMPH: No adenopathy. Medical Decision & Procedures ER Provider Diagnostic Interpretation: Radiology results as stated below per my review and radiologist interpretation: HEAD WITHOUT CONTRAST (CT) CT DOSE: 537.48 mGy.cm HISTORY: Mental status change DIZZINESS TECHNIQUE: Multiaxial CT images of the head were performed without the use of intravenous contrast. A dose lowering technique was utilized adhering to the principles of ALARA. Comparison: None. Findings: The paranasal sinuses and mastoid air cells are clear. The calvarium and skull base are intact. The ventricles and sulci are within normal limits. There is no mass, hematoma, midline shift, or acute infarct. Impression: No acute intracranial abnormality. The above report was generated using voice recognition software. It may contain grammatical, syntax or spelling errors. Electronically signed by: Bishop Shine M.D. 02/02/2017 8:50 AM Dictated Date/Time: 02/02/2017 8:49 AM Laboratory Results 02/02/17 08:28 Red Blood Count 4.97, Mean Corpuscular Volume 92.6, Mean Corpuscular Hemoglobin 30.8, Mean Corpuscular Hemoglobin Concent 33.3, Mean Platelet Volume 11.3, Neutrophils (%) (Auto) 77.8, Lymphocytes (%) (Auto) 14.3, Monocytes (%) (Auto) 6.3, Eosinophils (%) (Auto) 1.0, Basophils (%) (Auto) 0.1, Neutrophils # (Auto) 7.13, Lymphocytes # (Auto) 1.31, Monocytes # (Auto) 0.58, Eosinophils # (Auto) 0.09, Basophils # (Auto) 0.01 02/02/17 08:28 Test 02/02/17 08:28 02/02/17 08:31 02/02/17 12:00 White Blood Count 9.17 K/uL (4.8-10.8) Red Blood Count 4.97 M/uL (4.2-5.4) Hemoglobin 15.3 g/dL (12.0-16.0) Hematocrit 46.0 % (37-47) Mean Corpuscular Volume 92.6 fL (80-100) Mean Corpuscular Hemoglobin 30.8 pg (25-34) Mean Corpuscular Hemoglobin Concent 33.3 g/dl (32-36) Platelet Count 210 K/uL (130-400) Mean Platelet Volume 11.3 fL (7.4-10.4) Neutrophils (%) (Auto) 77.8 % Lymphocytes (%) (Auto) 14.3 % Monocytes (%) (Auto) 6.3 % Eosinophils (%) (Auto) 1.0 % Basophils (%) (Auto) 0.1 % Neutrophils # (Auto) 7.13 K/uL (1.4-6.5) Lymphocytes # (Auto) 1.31 K/uL (1.2-3.4) Monocytes # (Auto) 0.58 K/uL (0.11-0.59) Eosinophils # (Auto) 0.09 K/uL (0-0.5) Basophils # (Auto) 0.01 K/uL (0-0.2) RDW Standard Deviation 47.0 fL (36.4-46.3) RDW Coefficient of Variation 13.9 % (11.5-14.5) Immature Granulocyte % (Auto) 0.5 % Immature Granulocyte # (Auto) 0.05 K/uL (0.00-0.02) Anion Gap 8.0 mmol/L (3-11) Est Creatinine Clear Calc Drug Dose 56.9 ml/min Estimated GFR () 72.5 Estimated GFR (Non- 62.6 BUN/Creatinine Ratio 26.4 (10-20) Calcium Level 8.7 mg/dl (8.5-10.1) Total Bilirubin 0.3 mg/dl (0.2-1) Direct Bilirubin 0.1 mg/dl (0-0.2) Aspartate Amino Transf (AST/SGOT) 20 U/L (15-37) Alanine Aminotransferase (ALT/SGPT) 24 U/L (12-78) Alkaline Phosphatase 108 U/L (45-117) Total Protein 7.2 gm/dl (6.4-8.2) Albumin 4.1 gm/dl (3.4-5.0) Thyroid Stimulating Hormone (TSH) 1.770 uIu/ml (0.300-4.500) Bedside Glucose 114 mg/dl (70-90) Urine Color YELLOW Urine Appearance CLEAR (CLEAR) Urine pH 5.0 (4.5-7.5) Urine Specific [place] 1.023 (1.000-1.030) Urine Protein NEG (NEG) Urine Glucose (UA) NEG (NEG) Urine Ketones NEG (NEG) Urine Occult Blood NEG (NEG) Urine Nitrite NEG (NEG) Urine Bilirubin NEG (NEG) Urine Urobilinogen NEG (NEG) Urine Leukocyte Esterase NEG (NEG) Laboratory results reviewed by me Medications Administered Medications (Trade) Dose Ordered Sig/Bhaskar Route Start Time Stop Time Status Last Admin Dose Admin Diazepam (Valium Inj) 2.5 mg NOW STAT IV 02/02/17 08:02 02/02/17 08:03 DC 02/02/17 08:26 2.5 MG Sodium Chloride 1,000 ml @ 999 mls/hr Q1H1M STAT IV 02/02/17 08:02 02/02/17 09:02 DC 02/02/17 08:25 999 MLS/HR Ondansetron HCl (Zofran 8mg Iv) 8 mg NOW STAT IV 02/02/17 08:02 02/02/17 08:04 DC 02/02/17 08:26 8 MG Diazepam (Valium Inj) 5 mg NOW STAT IV 02/02/17 09:27 02/02/17 09:28 DC 02/02/17 09:41 5 MG ECG Indication: other (vertigo) Rate (beats per minute): 50 Rhythm: sinus bradycardia Findings: nonspecific-ST abn, Q waves (Inferior), no acute ischemic change Comparison ECG Date: t wave flattening anteriorly ED Course 0750: The patient was evaluated in room B12B. A complete history and physical exam was performed. 0802: Ordered Ondansetron HCl 8 mg IV, Sodium Chloride 1,000 ml @ 999 mls/hr IV , Diazepam 2.5 mg IV. 0925: The patient somewhat symptomatic but still has nausea. She will be given Valium. 0927: Ordered Valium Inj 5 mg IV. 0954: The patient reports that she is feeling better. 1320: The patient reports that she feels better than she did and would like to wait another hour to see how she feels. 1524: I reevaluated the patient and she feels much better. 1535: I reevaluated the patient. Discussed results and discharge instructions: She verbalized understanding and agreement. The patient is ready for discharge. Medical Decision Prior records/ancillary studies reviewed. Triage Nursing notes reviewed and agree them. The patient's history was concerning for dizziness. Differential diagnosis: Etiologies such as benign positional vertigo, tumor, infection, hypoglycemia, electrolyte abnormalities, cardiac sources, intracerebral event, toxicologic, neurologic, as well as others were entertained. Physical examination: As above. No pathologic nystagmus. ER treatment provided: IV hydration over one hour IV Zofran IV Valium 2 On reassessment the patient progressively better. Symptoms resolved. She was able to ambulate without difficulty. Diagnostics interpretation by me: ECG: Normal sinus rhythm without ischemic change or evidence of dysrhythmia. The labs revealed a normal CBC and chemistry panel. Urinalysis negative. CT scan as above. It appears the patient had an episode of benign -positional vertigo. By the evaluation outlined above emergent etiologies such as infection, hypoglycemia, electrolyte abnormalities, cardiac sources, intracerebral event, toxicologic, neurologic,as well as others were deemed relatively unlikely. She has done better with the above treatment. She would prefer to go home and is doing well enough that this is reasonable. As the pharmacies are closed at the moment the patient will be given some Valium to go home with. She will need close outpatient follow-up with her primary physician. The patient was informed about the findings as listed above. All questions were answered and she was very pleased with the treatment. Return instructions were outlined and the patient was discharged in stable condition. Outpatient prescription management: Valium The patient has Zofran at home Referral: The patient was referred back to her primary care physician for follow-up in 2 to 3 days for a recheck of the current condition. Medication Reconcilliation Current Medication List: was personally reviewed by me Blood Pressure Screening Patient's blood pressure: Elevated blood pressure Blood pressure disposition: Elevated BP felt to be situational Impression Primary Impression: Vertigo Additional Impressions: Dizziness Vomiting Scribe Attestation The scribe's documentation has been prepared under my direction and personally reviewed by me in its entirety. I confirm that the note above accurately reflects all work, treatment, procedures, and medical decision making performed by me. Departure Information Dispostion Home / Self-Care Prescriptions Diazepam (Valium) 5 Mg Tab 5 MG PO Q6H Y for Dizziness or Vertigo, #10 TAB Prov: Nixon Steve MD 02/02/17 Referrals Tan Del Rio MD (PCP) Forms HOME CARE DOCUMENTATION FORM, IMPORTANT VISIT INFORMATION, WORK / SCHOOL INSTRUCTIONS Patient Instructions My [facility] Additional Instructions DIZZINESS INSTRUCTIONS: DO NOT drive, drink alcohol, operate machinery, or perform dangerous activities today. You were given medications in the ER that can affect your ability to safely function or operate a vehicle. You should not drive or perform any dangerous activities until your symptoms resolve. Valium 5mg: Take 1 pill every 6-8 hours as needed for dizziness or vertigo. Avoid alcohol, operating machinery or dangerous equipment, working on ladders or roofs, DRIVING, or situations where being under the influence may be dangerous Continue your Zofran(odansetron) tablets 4mg: Take one and allow it to dissolve in your mouth every four to six hours as needed for nausea or vomiting. Rest and drink plenty of fluids as tolerated. Continue current medications. If you have nausea or vomiting: Once your stomach is settled start with a clear liquid diet (jello, soup broth, etc.) and then advance as tolerated. You should avoid full, heavy meals for about 24 hrs from the time your symptoms resolved. Return to the ER immediately for worsening or persistent dizziness, vomiting, headache, fevers, chest pains, difficulty breathing, black or bloody stools, slurred speech, numbness, weakness, visual changes, worsening of your condition , or as needed. Follow up with your primary physician in 2-3 days for a recheck of your current condition. Problem Qualifiers
[2017-02-02] MEDS ORDERED: EMPTY 8 DRAM VIAL ONE (16:22)
[2017-02-02] MEDS ORDERED: ONDANSETRON HOME PACK 4MG OD TAB PO ONE (16:30)
[2017-02-02 16:33] VITALS: BP 124/79; PULSE 82; O2SAT 97
== END 2017-02-02 16:34 | disposition home or self-care (01) ==
LOC: EDBD 07:42 → C.EDB 07:43
DX: R42 Dizziness and giddiness (principal); R11.2 Nausea with vomiting, unspecified; M16.10 Unilateral primary osteoarthritis, unspecified hip; R19.7 Diarrhea, unspecified; Z82.3 Family history of stroke

== ENCOUNTER → 2017-04-07 | Outpatient (CLI) | payer OTHER ==
[~2017-04-07] MED LIST changes: -ACET-1311 PO; -ASPI-428 PO; -B-COTAB18 PO; -BND25 PO; -CALC500C70 PO; -CHOL100010 PO; -CYAN500S5 PO; +DIAZ-165 PO; -FERR18TA2 PO; -MAGNESIUM PO; -MOME50SP5 NAE; +MOME6000; -NIAC50TA9 PO; -POTA99TA PO; -PYRI100T4 PO; -THIA100T11 PO; +VITACAP26 PO; -ZINC1CAP PO; -[UNRECOGNIZED DRUG - CODE] PO
== END | disposition home or self-care (01) ==
LOC: C.RDSM 11:55
PROVIDERS: ATTEND Physical Medicine & Rehabilitation Sports Medicine
DX: M16.0 Bilateral primary osteoarthritis of hip (principal)

== ENCOUNTER 2018-06-21 11:44 | Inpatient (IN) ==
[2018-06-21] MEDS ORDERED: diazePAM INJ 5 MG/ML 2 ML CARP IV STA ×3 (11:59→17:30)
[2018-06-21] MEDS ORDERED: PROCHLORPERAZINE 5 MG in SYRINGE 4 ML IV ONE (11:59)
[2018-06-21] MEDS ORDERED: DiphenhydrAMINE HCL 50 MG/ML VIAL IV STA (11:59)
[2018-06-21] MEDS ORDERED: DIAZEPAM 5 MG/ML INJ 10ML VIAL ONE ×2 (12:09→17:44)
[2018-06-21] MEDS ORDERED: PROCHLORPERAZINE 5 MG/ML 2 ML VIAL ONE (12:11)
[2018-06-21] MEDS: SODIUM CHLORIDE 0.9% 500 ML IV SCH ×2 (12:15→20:18)
[2018-06-21 12:19] LABS: Basophils # (auto) 0.01 K/uL (0-0.2); Basophils % (auto) 0.1 %; Eosinophils % (auto) 1.3 %; Hematocrit (blood only) 47.9 % (37-47); Hemoglobin 16.1 g/dL (12.0-16.0); Immature Granulocytes # (auto) 0.07 K/uL (0.00-0.02); Immature Granulocytes % (auto) 0.9 %; Lymphocytes # (auto) 1.54 K/uL (1.2-3.4); Lymphocytes % (auto) 20.6 %; Mean Corpuscular Hgb Conc 33.6 g/dL (32-36); Mean Corpuscular Volume 91.8 fL (80-100); Mean Platelet Volume 10.9 fL (7.4-10.4); Monocytes % (auto) 5.3 %; Neutrophils # (auto) 5.37 K/uL (1.4-6.5); Neutrophils % (auto) 71.8 %; Platelet Count 226 K/uL (130-400); RDW Coefficient of Variation 13.2 % (11.5-14.5); RDW Standard Deviation 43.8 fL (36.4-46.3); Red Blood Count 5.22 M/uL (4.2-5.4); White Blood Count 7.49 K/uL (4.8-10.8)
--- NOTE | 2018-06-21 12:22 | XRay Report ---
XR chest 1V portable CLINICAL HISTORY: 73 years-old Female presenting with dizzy, vomiting. TECHNIQUE: Portable upright AP view of the chest was obtained. COMPARISON: 07/21/2014. FINDINGS: Atherosclerosis of the aortic arch. Cardiac silhouette mildly enlarged. Minimal basilar opacities. No pleural effusion or pneumothorax. Degenerative changes of the glenohumeral joints. Upper abdomen nor mal. IMPRESSION: 1. Mild cardiomegaly. No cortes volume overload or pulmonary edema. 2. Suspected minimal bibasilar atelectasis. Electronically signed by: Ashkan Duggan M.D. 06/21/2018 12:20 PM
[2018-06-21 12:29] LABS: Alanine Aminotransferase 22 U/L (12-78); Albumin Level 3.6 gm/dl (3.4-5.0); Aspartate Aminotransferase 15 U/L (15-37); BUN Creatinine Ratio 19.5 (10-20); Blood Urea Nitrogen 21 mg/dl (7-18); Calcium 8.7 mg/dl (8.5-10.1); Carbon Dioxide 23 mmol/L (21-32); Chloride 105 mmol/L (98-107); Creatinine Clr Calc Pharmacy 48.9 ml/min; Est GFR (African American) 58.8; Est GFR (Non-African American) 50.7; Glucose 135 mg/dl (70-99); Magnesium 2.1 mg/dl (1.8-2.4); Potassium 3.9 mmol/L (3.5-5.1); Sodium 139 mmol/L (136-145)
[2018-06-21 12:39] LABS: Alkaline Phosphatase 66 U/L (45-117); Bilirubin,Total 0.5 mg/dl (0.2-1); Globulin 3.4 gm/dl (2.5-4.0); Troponin I < 0.015 ng/ml (0-0.045)
[2018-06-21] MEDS ORDERED: OPTIRAY 320 125ml IV PRN (13:02)
--- NOTE | 2018-06-21 13:20 | CT Scan Report ---
CT head/brain wo con CLINICAL HISTORY: 73 years-old Female presenting with petersen, dizziness, vomiting. TECHNIQUE: Multidetector CT imaging of the head was performed without the use of intravenous contrast . IV contrast: None. A dose lowering technique was used consistent with the principles of ALARA (as l ow as reasonably achievable). COMPARISON: 02/02/2017. CT DOSE (mGy.cm): The estimated cumulative dose is 1114.15. FINDINGS: Rate Analyst topogram: Unremarkable. Ventricles and sulci normal in size. No hemorrhage. Brain parenchyma normal in appearance with preser soniya jules-white differentiation. No acute territorial infarct. No mass effect or midline shift. No ext ra-axial fluid collection. Paranasal sinuses and mastoid air cells clear. Calvarium intact. Bilateral hopland lenses are absent. IMPRESSION: 1. No acute intracranial abnormality. Electronically signed by: Ashkan Duggan M.D. 06/21/2018 1:18 PM
--- NOTE | 2018-06-21 13:27 | CT Scan Report ---
CT angio head w con CLINICAL HISTORY: 73 years-old Female presenting with petersen, dizzy, vomiting. TECHNIQUE: Multidetector CT angiography of the head was performed after the administration of intrave nous contrast. 3-D volumetric and/or maximum intensity projection (MIP) images were subsequently bridget nstructed for review. IV contrast: 120 mL of Optiray 320. A dose lowering technique was used consiste nt with the principles of ALARA (as low as reasonably achievable). COMPARISON: None. CT DOSE (mGy.cm): The estimated cumulative dose is 1114.15 mGy.cm. FINDINGS: Nurse Healthcare Manager topogram: Unremarkable. Anterior circulation: Intracranial portions of the internal carotid arteries patent to the level of t he termini. Anterior cerebral arteries patent. Middle cerebral arteries patent. Anterior communicatin g artery patent. Posterior circulation: Codominant vertebral arteries. Intradural portions of the vertebral arteries p atent. Posterior inferior cerebellar arteries patent. Basilar artery patent. Anterior inferior cerebe llar arteries poorly visualized. Superior cerebellar arteries patent. Posterior cerebral arteries pat ent.Posterior communicating arteries patent. Dural venous sinuses: Patent. Other: Allowing for the phase of contrast, brain parenchyma within normal limits. Calvarium intact. IMPRESSION: 1. No evidence of aneurysm, focal vessel occlusion, or significant stenosis of the intracranial elvin wiley. Electronically signed by: Ashkan Duggan M.D. 06/21/2018 1:26 PM
--- NOTE | 2018-06-21 13:36 | CT Scan Report ---
CT angio neck with con CLINICAL HISTORY: 73 years-old Female presenting with petersen, neck pain, dizzy, vomiting. TECHNIQUE: Multidetector CT angiography of the neck was performed after the administration of intrave nous contrast. 3-D volumetric and/or maximum intensity projection (MIP) images were subsequently bridget nstructed for review. IV contrast: 120 mL of Optiray 320. A dose lowering technique was used consiste nt with the principles of ALARA (as low as reasonably achievable). Stenosis measurements were based o n NASCET-like criteria. COMPARISON: Carotid Doppler ultrasound from 07/21/2014. CT DOSE (mGy.cm): The estimated cumulative dose is 1114.15. FINDINGS: [place] Former topogram: Unremarkable. Aortic arch: Normal aortic arch with patent origins of the branch vessels. Common trunk of the innomi sandra and left common carotid arteries. Innominate artery: Patent. Right subclavian artery: Patent. Right common carotid artery: Patent. Right internal and external carotid arteries: Right carotid bifurcation patent. Right internal and ex ternal carotid arteries widely patent. Left common carotid artery: Patent. Left internal and external carotid arteries: Left carotid bifurcation patent. Left internal and exter nal carotid arteries widely patent. Left subclavian artery: Patent. Kinking proximal to the takeoff of the left vertebral artery best dorian reciated on the sagittal MIP images. Vertebral arteries: Codominant vertebral arteries. Origins and courses of the bilateral vertebral art eries patent. Other: Limited intracranial evaluation within normal limits. Multiple thyroid nodules. Degenerative c hanges of the cervical spine. Lung apices clear. IMPRESSION: 1. No evidence of dissection, focal vessel occlusion, or significant stenosis of the cervical arteri es. Electronically signed by: Ashkan Duggan M.D. 06/21/2018 1:35 PM
[2018-06-21] MEDS ORDERED: MECLIZINE HCL 25 MG TAB PO STA (16:53)
[2018-06-21] MEDS ORDERED: ONDANSETRON INJ 2 MG/ML 2 ML VIAL IV STA (17:30)
[2018-06-21 17:52] LABS: Appearance Urine Clear (Clear); Bacteria Urine Automated Negative (Negative); Bilirubin Urine Negative (Negative); Color Urine Yellow; Glucose Urine UA Negative (Negative); Ketones Urine Negative (Negative); Leukocyte Esterase Urine 1+ (Negative); Nitrite Urine Negative (Negative); Protein Urine Negative (Negative); Specific Gravity Urine > 1.045 (1.000-1.030); Urobilinogen Urine Negative (Negative); WBC Urine Automated >30 /hpf (0-5)
--- NOTE | 2018-06-21 19:23 | History & Physical Report ---
Date of Service June 21, 2018 Assessment & Plan (1) Peripheral vertigo: History and physical exam point to a peripheral source of vertigo but will r/o potential sources of central vertigo Sx most consistent with acute sinusitis, serous otitis media vs vestibular neuritis vs menieres, BPPV -admit to telemetry -Levaquin 750mg daily for probably acute sinusitis -Pseudophedrine 60mg q12 for decongestant -IVF NS 125cc/hr x 2 L and re eval in a.m. -consult neurology given change in presentation of vertigo -neurochecks q4hr -PT/OT -A1C/Lipid panel, cbc, bmp in a.m. -If sx worsen or do not improve consider MRI brain w/o contrast in a.m. (2) Sinusitis: -plan as above (3) Serous otitis media: -plan as above (4) DVT prophylaxis: -lovenox Disposition: D/C to home when able Follow up: Dr. Del Rio upon discharge Pt was seen in collaboration with Dr. Stone, please see addendum Starting 06/22/18 patient will be followed by Dr. Candelaria History of Present Illness Chief Complaint: Vertigo x 1 day. Primary Care Provider: Tan Del Rio MD This is a 73 year old female with significant PMH of BPPV and Gerd who presents to [facility] ED secondary to vertigo like sx x 1 day. Patient awoke at 2am with dizziness, spinning like sensation. Took meclizine with out relief. At 6am tried meclizine again with zofran with out relief. Further had N/V, R sided SOLIS , photophobia, R ear discomfort. Sx made worse with going from lying to sitting or sitting to standing. Unsteady, off balance and unable to walk. Symptoms not effected with head movements to side. Pt has hx of vertigo before requiring ED visits. 3rd episode in last 3 years. at bedsideUsually resolves with meclizine and zofran. States this vertigo feels different. Further complains of sinus pressure and dysuria. Denies change in vision or acute change in hearing. Notes that she has a chronic R hearing deficit. Denies recent illness or URI, sick contacts, f/c/s, syncope or pre-syncope, lightheaded, chest pain, sob, sore throat, abdominal pain, diarrhea. Prior to today appetite had been normal. Denies hx of tobacco use, +daily < 4 oz glass wine with dinner. +FH of Hemorrhagic CVA in sister which was fatal, unknown cause. Allergies Allergy/AdvReac Type Severity Reaction Status Date / Time amoxicillin Allergy Severe hives Verified 06/21/18 18:55 morphine Allergy Severe CHEST Verified 06/21/18 13:20 TIGHTNESS, RASH, DYSPNEA ampicillin Allergy Unknown SEVERE Verified 06/21/18 13:20 HIVES chicken derived Allergy Unknown diarrhea Verified 06/21/18 18:55 alendronate sodium AdvReac Unknown GI SYMPTOMS Verified 06/21/18 13:20 black pepper AdvReac Unknown COUGHING Verified 06/21/18 13:20 Home Medications Home Medications Medication Instructions Recorded Confirmed Type meclizine 25 mg PO TID PRN 06/21/18 06/21/18 History Past Med/Surg History Medical History BPPV (benign paroxysmal positional vertigo) GERD (gastroesophageal reflux disease) Vertigo (Acute) Surgical History History of tubal ligation History of tonsillectomy and adenoidectomy History of bilateral total hip arthroplasty History of cataract extraction History of blepharoplasty History of open reduction and internal fixation (ORIF) procedure L ankle Family History Sister Hemorrhagic cerebrovascular accident (CVA) Mother Breast cancer Father Leukemia Social History marital status: Current Living Situation: Spouse Other Information That Helps Us Care for You: No Feels Safe at Home: Yes Smoking Status: Former smoker Years Smoked: 1 Cigarettes per Day: very remotely Hx Alcohol Use: Yes Alcohol type: wine Alcohol Intake Frequency: 0-2 drinks per day Alcohol Intake Frequency Comment: 1 < 4 oz glass of wine daily Hx Substance Use: No Beliefs That Will Affect Care: None Preferred Language: [place] Communication Ability: Effective Review of Systems All systems reviewed & are unremarkable except as noted in HPI & below Physical Exam 2 Vital Signs (Past 24 Hours): Last Vital Signs Temp 36.4 C L 06/21/18 11:54 Pulse 85 06/21/18 18:43 Resp 20 06/21/18 18:43 BP 120/87 06/21/18 18:43 Pulse Ox 98 06/21/18 18:43 Physical Exam: Gen: WD/WN, F, +acute distress with dizziness, sitting up in bed, pleasant, conversing easily Head: Normocephalic, Atraumatic Eyes: Sclera normal, no conjunctival injection, PERRLA, EOMI, +photophobia ENT: Gross hearing intact, +pain to palpation R tragus/mastoid, +R maxillary sinus pressure, b/L TM visualized, +serous otitis R, +tortorous EAC, normal pharynx, mucous membranes moist Neck: supple, no adenopathy, No JVD, no bruit, Resp: Clear to auscultation b/l, no wheeze, rales, rhonchi. Normal insp/exp effort, no accessory muscle use CV: Regular rate, regular rhythm, no murmur, rub, gallop, or ectopy Abd: +BS x 4, soft, nontender, nondistended Musculoskeletal: moves extremities active rom x 4, strength intact, good general passenger agent strength Extremities: No edema bilaterally Skin: warm, moist, no rash, negative turgor, cap refill < 2sec Neuro: Alert and oriented x 3, speech normal, good mood/affect, cran nerve 2-12 intact grossly, point to point intact, negative pronator drift. No focal neuro deficits. : deferred Results & Data Laboratory Results Short CBC 06/21/18 Range/Units 11:55 WBC 7.49 (4.8-10.8) K/uL Hgb 16.1 H (12.0-16.0) g/dL Hct 47.9 H (37-47) % Plt Count 226 (130-400) K/uL BMP 06/21/18 11:55 Sodium 139 Potassium 3.9 Chloride 105 Carbon Dioxide 23 BUN 21 H Creatinine 1.07 Glucose 135 H Calcium 8.7 Cardiac Enzymes 06/21/18 Range/Units 11:55 Troponin I < 0.015 (0-0.045) ng/ml Liver Function 06/21/18 Range/Units 11:55 Total Bilirubin 0.5 (0.2-1) mg/dl AST 15 (15-37) U/L ALT 22 (12-78) U/L Alkaline Phosphatase 66 (45-117) U/L Albumin 3.6 (3.4-5.0) gm/dl Urine 06/21/18 Range/Units 17:32 Urine Color Yellow Urine Appearance Clear (Clear) Urine pH 5.0 (4.5-7.5) Ur Specific [place] > 1.045 H (1.000-1.030) Urine Protein Negative (Negative) Urine Glucose (UA) Negative (Negative) Diagnostic Findings CTA Head/Neck: IMPRESSION: 1. No evidence of aneurysm, focal vessel occlusion, or significant stenosis of the intracranial arteries. IMPRESSION: 1. No evidence of dissection, focal vessel occlusion, or significant stenosis of the cervical arteries. Head CT: IMPRESSION: 1. No acute intracranial abnormality. CXR: IMPRESSION: 1. Mild cardiomegaly. No cortes volume overload or pulmonary edema. 2. Suspected minimal bibasilar atelectasis. ECG Rate (beats per minute): 76 Rhythm: normal sinus Additional Comments: QTC 463ms Code Status & VTE Plan Code Status Full Code VTE Prophylaxis Plan VTE Prophylaxis will be ordered: Yes _ (1) Serous otitis media Chronicity: acute Laterality: right Recurrence: non-recurrent Qualified Code(s): H65.01 - Acute serous otitis media, right ear (2) Sinusitis Chronicity: acute Recurrence: non-recurrent Sinusitis location: maxillary Qualified Code(s): J01.00 - Acute maxillary sinusitis, unspecified (3) Peripheral vertigo Laterality: right Qualified Code(s): H81.391 - Other peripheral vertigo, right ear
[2018-06-21] MEDS ORDERED: ACETAMINOPHEN 325 MG TAB PO PRN (19:34)
[2018-06-21] MEDS ORDERED: PROMETHAZINE HCL 25 MG TAB PO PRN (19:34)
[2018-06-21] MEDS ORDERED: ONDANSETRON INJ 2 MG/ML 2 ML VIAL IV PRN (19:34)
[2018-06-21] MEDS: SODIUM CHLORIDE 0.9% 1000ML 1,000 ML IV SCH (20:59)
[2018-06-21] MEDS: LEVOFLOXACIN/D5W 750 MG/150 ML BAG IV SCH (21:11)
[2018-06-21] MEDS: PSEUDOEPHEDRINE HCL 30 MG TAB PO SCH (21:12)
[2018-06-21] MEDS: guaiFENesin 600 MG TABCR PO SCH (21:12)
[2018-06-21 21:19] LABS: INR 1.1 (0.9-1.1); Partial Thromboplastin Time 26.8 Seconds (21.0-31.0); Prothrombin Time 10.8 Seconds (9.0-12.0)
[2018-06-21 22:43] LABS: Appearance Urine Cloudy (Clear); Bilirubin Urine Negative (Negative); Color Urine Yellow; Glucose Urine UA Negative (Negative); Ketones Urine Trace (Negative); Leukocyte Esterase Urine 2+ (Negative); Nitrite Urine Negative (Negative); Protein Urine Negative (Negative); Specific Gravity Urine > 1.045 (1.000-1.030); Urobilinogen Urine Negative (Negative); WBC Urine Automated >30 /hpf (0-5)
[2018-06-21 22:54] LABS: Bacteria Urine Automated 1+ (Negative)
[2018-06-22] MEDS: SODIUM CHLORIDE 0.9% 1000ML 1,000 ML IV SCH (05:25)
[2018-06-22 06:17] LABS: Eosinophils # (auto) 0.12 K/uL (0-0.5); Eosinophils % (auto) 1.3 %; Hematocrit (blood only) 45.7 % (37-47); Hemoglobin 15.2 g/dL (12.0-16.0); Immature Granulocytes # (auto) 0.03 K/uL (0.00-0.02); Immature Granulocytes % (auto) 0.3 %; Lymphocytes # (auto) 1.93 K/uL (1.2-3.4); Lymphocytes % (auto) 20.6 %; Mean Corpuscular Hgb Conc 33.3 g/dL (32-36); Mean Corpuscular Volume 93.1 fL (80-100); Mean Platelet Volume 10.7 fL (7.4-10.4); Monocytes # (auto) 1.05 K/uL (0.11-0.59); Monocytes % (auto) 11.2 %; Neutrophils # (auto) 6.23 K/uL (1.4-6.5); Neutrophils % (auto) 66.6 %; Platelet Count 225 K/uL (130-400); RDW Coefficient of Variation 13.3 % (11.5-14.5); RDW Standard Deviation 45.2 fL (36.4-46.3); Red Blood Count 4.91 M/uL (4.2-5.4); White Blood Count 9.36 K/uL (4.8-10.8)
[2018-06-22 06:48] LABS: BUN Creatinine Ratio 15.1 (10-20); Calcium 8.1 mg/dl (8.5-10.1); Creatinine Clr Calc Pharmacy 50.3 ml/min; Est GFR (African American) 62.3; Est GFR (Non-African American) 53.8; Potassium 3.6 mmol/L (3.5-5.1)
[2018-06-22 07:16] LABS: Estimated Average Glucose 111 mg/dl
[2018-06-22] MEDS: PSEUDOEPHEDRINE HCL 30 MG TAB PO SCH ×2 (08:28→20:17)
[2018-06-22] MEDS: ENOXAPARIN INJ 40 MG/0.4 ML SYR SQ SCH (08:28)
[2018-06-22] MEDS: guaiFENesin 600 MG TABCR PO SCH ×2 (08:28→20:17)
[2018-06-22] MEDS ORDERED: LORazepam 0.25 MG/0.5 ML VIAL IV STA (13:02)
--- NOTE | 2018-06-22 13:22 | Hospitalist Progress Note ---
Date of Service June 22, 2018 Assessment & Plan (1) Peripheral vertigo: History and physical exam point to a peripheral source of vertigo but will r/o potential sources of central vertigo Sx most consistent with acute sinusitis, serous otitis media vs vestibular neuritis vs menieres, BPPV -admit to telemetry -Pseudophedrine 60mg q12 for decongestant -IVF NS 125cc/hr x 2 L and re eval in a.m. -Clinically little bit better today -Denies any associated neurological symptoms -Neurology consult-await input -We will have an MRI today -Matty maneuver following the MRI (2) Sinusitis: ---Levaquin 750mg daily for probably acute sinusitis (3) Serous otitis media: No treatment needed Has been on Levaquin for possible sinusitis (4) DVT prophylaxis: -lovenox Disposition: D/C to home when able Follow up: Dr. Del Rio upon discharge Subjective She is a 73-year-old female with significant past medical history of benign paroxysmal positional vertigo was admitted with another episode of vertigo and noted to have acute maxillary sinusitis. 06/22 The patient was seen and examined in medical telemetry unit Heart dizziness has been better since admission Complains to have some sinus pain and also pain in the right ear Denies any neurological symptoms Physical Exam 2 Vital Signs (Past 24 Hours): Last Vital Signs Temp 36.8 C 06/22/18 11:49 Pulse 87 06/22/18 11:49 Resp 18 06/22/18 11:49 BP 124/81 06/22/18 11:49 Pulse Ox 94 06/22/18 11:49 Physical Exam: Lying in bed comfortably. Anxious Constitutional: WD/WN, vitals as above Eyes: PERRL, conjunctivae normal, anicteric sclerae ENMT: external ear and nose normal, oropharynx normal Tenderness over left maxillary sinus area Respiratory: normal respiratory effort, lungs clear to auscultation Cardiovascular: Rate/Rhythm: regular rate and regular rhythm Heart Sounds: normal S1 and normal S2 Gastrointestinal (Abdomen): normal bowel sounds, soft, nontender, no hepatosplenomegaly Neurologic: PERRL, EOMI, accommodation nl, no face palsy, no dysarthria Results & Data Laboratory Results Short CBC 06/22/18 Range/Units 05:42 WBC 9.36 (4.8-10.8) K/uL Hgb 15.2 (12.0-16.0) g/dL Hct 45.7 (37-47) % Plt Count 225 (130-400) K/uL BMP 06/22/18 05:42 Sodium 140 Potassium 3.6 Chloride 108 H Carbon Dioxide 25 BUN 15 Creatinine 1.02 Glucose 96 Calcium 8.1 L Urine 06/21/18 06/21/18 Range/Units 17:32 22:23 Urine Color Yellow Yellow Urine Appearance Clear Cloudy H (Clear) Urine pH 5.0 5.0 (4.5-7.5) Ur Specific [place] > 1.045 H > 1.045 H (1.000-1.030) Urine Protein Negative Negative (Negative) Urine Glucose (UA) Negative Negative (Negative) Medications Administered Current Inpatient Medications Acetaminophen (Tylenol) 650 mg PO Q4H PRN PRN Reason: Pain or Fever Stop: 07/21/18 19:33 Enoxaparin Sodium (Lovenox) 40 mg SQ QAM [facility] Stop: 07/22/18 08:59 Last Admin: 06/22/18 08:28 Dose: 40 mg Guaifenesin (Mucinex) 600 mg PO Q12H [facility] Stop: 07/21/18 20:59 Last Admin: 06/22/18 08:28 Dose: 600 mg Levofloxacin/Dextrose (Levaquin/D5w) 750 mg in 150 mls @ 100 mls/hr IV Q24H [facility] ; Protocol Stop: 07/01/18 20:59 Last Infusion: 06/21/18 22:50 Dose: Infused Ioversol (Optiray 320 125ml) 120 ml IV ONCE PRN PRN Reason: Interaction Checking Stop: 06/25/18 13:01 Last Admin: 06/21/18 13:02 Dose: 120 ml Ondansetron HCl (Zofran) 4 mg IV Q6H PRN PRN Reason: Nausea Stop: 07/21/18 19:33 Promethazine HCl (Phenergan) 25 mg PO Q6H PRN PRN Reason: Nausea And Vomiting Stop: 07/21/18 19:33 Pseudoephedrine HCl (Suphedrine Sinus Congestion) 60 mg PO Q12H [facility] Stop: 06/23/18 20:59 Last Admin: 06/22/18 08:28 Dose: 60 mg _ (1) Peripheral vertigo Laterality: right Qualified Code(s): H81.391 - Other peripheral vertigo, right ear (2) Sinusitis Sinusitis location: maxillary Chronicity: acute Recurrence: non-recurrent Qualified Code(s): J01.00 - Acute maxillary sinusitis, unspecified (3) Serous otitis media Chronicity: acute Laterality: right Recurrence: non-recurrent Qualified Code(s): H65.01 - Acute serous otitis media, right ear
--- NOTE | 2018-06-22 13:56 | Neurology Consultation ---
Date of Consultation June 22, 2018 Assessment & Plan (1) Vertigo: 1. MRI IAC with and without ordered 2. needs PT OT evaluation and manipulation with Matty 3. continue meclizine and zofran as needed 4. if patient still symptomatic at discharge will need formal Matty with [facility] in [place] 5. fall precautions 6. further recommendation once MRI IAC completed. 7. out patient ENT for tinnitis and hearing loss will see her in 4-6 weeks Sheila Brewer neurology schedule Supervising Physician Co-Signing Physician Notes I have seen and discussed above patient with Dr Nixon Hanson, neurology I have examined and interviewed Mrs. Thompson and case with Sheila Medina I agree completely with the above assessment and plan. We have a 73-year-old woman with 4 years of recurrent episodes of tinnitus right ear fullness, hearing loss and vertigo all of brief duration but as far as I can tell by review of the chart, not fully evaluated with appropriate neuroimaging studies to include internal auditory canals and contrast enhancement. Current examination reveals some mild subjective vertigo with head movement O clear-cut nystagmus, no cerebellar signs no dysarthria sensory loss or motor system deficits. A cerebrovascular accident is very low on my list of differential diagnoses but I remain concerned about possible acoustic neuroma and also about potential Mnire's disease although one could argue that the onset of Mnire's at her age would be a little unusual We will review the imaging tomorrow currently neurology is no further suggestions other than to use Antivert and appropriate vestibular suppression therapy and to strongly consider an outpatient ear nose and throat or balance center evaluation assuming of course the imaging studies show no significant posterior fossa pathology. We will revisit her tomorrow. Nixon Hanson MD History of Present Illness Reason for Consultation: Vertigo Requesting Physician: Pete Candelaria MD Attending Physician: Pete Candelaria MD History of Present Illness Leah is a 73 year old female with PMH of BPPV and Gerd who presents to [facility] ED secondary to vertigo like sx x 1 day. She woke at 2am with dizziness, spinning like sensation. Took meclizine with out relief. At 6am tried meclizine again with zofran with out relief. She then tried some exercises she had been given which she could not tolerate. Movement of her head made the dizziness and nausea worse. She was unable to walk and the symptoms usually resolve once she takes meclizine and zofran. 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 She states the hearing loss started about 8 years ago after she hit her head on a truck door frame. Denies hx of tobacco use, +daily < 4 oz glass wine with dinner. denies CP, SOB, one sided weakness, numbness tingling, vision changes, current N/V. +dizziness. Allergies Allergy/AdvReac Type Severity Reaction Status Date / Time amoxicillin Allergy Severe hives Verified 06/21/18 18:55 morphine Allergy Severe CHEST Verified 06/21/18 13:20 TIGHTNESS, RASH, DYSPNEA ampicillin Allergy Unknown SEVERE Verified 06/21/18 13:20 HIVES chicken derived Allergy Unknown diarrhea Verified 06/21/18 18:55 alendronate sodium AdvReac Unknown GI SYMPTOMS Verified 06/21/18 13:20 black pepper AdvReac Unknown COUGHING Verified 06/21/18 13:20 Home Medications Home Medications Medication Instructions Recorded Confirmed Type meclizine 25 mg PO TID PRN 06/21/18 06/21/18 History Patient History Medical History BPPV (benign paroxysmal positional vertigo) GERD (gastroesophageal reflux disease) Vertigo (Acute) Surgical History History of tubal ligation History of tonsillectomy and adenoidectomy History of bilateral total hip arthroplasty History of cataract extraction History of blepharoplasty History of open reduction and internal fixation (ORIF) procedure L ankle Family History Sister Hemorrhagic cerebrovascular accident (CVA) Mother Breast cancer Father Leukemia Social History marital status: Current Living Situation: Spouse Other Information That Helps Us Care for You: No Feels Safe at Home: Yes Smoking Status: Former smoker Years Smoked: 1 Cigarettes per Day: very remotely Hx Alcohol Use: Yes Alcohol type: wine Alcohol Intake Frequency: 0-2 drinks per day Alcohol Intake Frequency Comment: 1 < 4 oz glass of wine daily Hx Substance Use: No Beliefs That Will Affect Care: None Communication Ability: Effective Physical Exam 2 Vital Signs (Past 24 Hours): Last Vital Signs Temp 36.8 C 06/22/18 11:49 Pulse 87 06/22/18 11:49 Resp 18 06/22/18 11:49 BP 124/81 06/22/18 11:49 Pulse Ox 94 06/22/18 11:49 Physical Exam: Constitutional: appearance nourished, healthy and normal Ears, Nose, Mouth and Throat: mucous membranes moist, no injection and skin normal, eyes normal Cardiovascular: normal S-1 and S-2 and regular rate and rhythm Respiratory: clear to auscultation (CTA) and no rales, ronchi or wheeze Musculoskeletal: no peripheral edema and good distal pulses Skin: no stigmata of neurocutaneous disease noted and normal and intact Eyes: extraocular muscles intact (EOMI) and pupils equal, round and reactive to light (PERRL) NEUROLOGIC EXAMINATION: Mental status: Alert and interactive Oriented to full date and location Oriented to person Speech fluent with no evidence of aphasia Cranial Nerves smile eye brow raise symmetric Reflexes: Deep tendon reflexes were symmetrical and graded 2/5. Plantar responses were flexor. Sensory: to light and cool touch Coordination: finger to nose no bi pass, no tremor or cogwheeling Gait/Stance: Posture lying in bed. Motor: Negative for pronator drift of out stretched arms with eyes closed. Strength: biceps triceps hand health actuary 5/5 bilaterally, hip flex plantar flex ext bilaterally symmetric Results & Data Laboratory Results Abnormal lab results 06/21/18 06/21/18 06/22/18 Range/Units 17:32 22:23 05:42 MPV 10.7 H (7.4-10.4) fL Immature Gran # (Auto) 0.03 H (0.00-0.02) K/uL [place] # (Auto) 1.05 H (0.11-0.59) K/uL Chloride (98-107) mmol/L Calcium (8.5-10.1) mg/dl Urine Appearance Cloudy H (Clear) Ur Specific [place] > 1.045 H > 1.045 H (1.000-1.030) Urine Ketones Trace H (Negative) Urine Blood Trace H (Negative) Ur Leukocyte Esterase 1+ H 2+ H (Negative) Urine WBC (Auto) >30 H >30 H (0-5) /hpf U Epithel Cells (Auto) 5-10 H 10-20 H (0-5) /lpf Urine Bacteria (Auto) 1+ H (Negative) 06/22/18 Range/Units 05:42 MPV (7.4-10.4) fL Immature Gran # (Auto) (0.00-0.02) K/uL [place] # (Auto) (0.11-0.59) K/uL Chloride 108 H (98-107) mmol/L Calcium 8.1 L (8.5-10.1) mg/dl Urine Appearance (Clear) Ur Specific [place] (1.000-1.030) Urine Ketones (Negative) Urine Blood (Negative) Ur Leukocyte Esterase (Negative) Urine WBC (Auto) (0-5) /hpf U Epithel Cells (Auto) (0-5) /lpf Urine Bacteria (Auto) (Negative) Diagnostic Findings CTA neck- No evidence of dissection, focal vessel occlusion, or significant stenosis of the cervical arteries. CTA head- No evidence of aneurysm, focal vessel occlusion, or significant stenosis of the intracranial arteries. CT head- No acute intracranial abnormality. CXR- Mild cardiomegaly. No cortes volume overload or pulmonary edema. Suspected minimal bibasilar atelectasis.
[2018-06-22] MEDS: LORazepam 0.25 MG/0.5 ML VIAL IV STA ×2 (20:25→20:51)
[2018-06-22] MEDS ORDERED: GADOBUTROL 65ML VIAL IV PRN (22:02)
[2018-06-22] MEDS: LEVOFLOXACIN/D5W 750 MG/150 ML BAG IV SCH (22:02)
[2018-06-22] MEDS ORDERED: GADOXETATE DISODIUM IV PRN (22:02)
--- NOTE | 2018-06-22 22:33 | Magnetic Resonance Report ---
MR brain IAC wo/w con CLINICAL HISTORY: Evaluate for lesion causing vertigo. COMPARISON STUDY: MRI of the brain July 21, 2014. Head CT and CTA of the head June 23, 2018. TECHNIQUE: Utilizing a 1.5 [place] magnet and dedicated coil, multiplanar, multiecho imaging of the bra in was performed pre and postcontrast administration with thin cut imaging through the internal audit ory canals. Intravenous injection of 8 cc of Gadavist IV was uneventful. FINDINGS: There are no foci of restricted diffusion to suggest acute infarct. No acute intracranial h emorrhage, midline shift or mass effect is present. Brain volume is normal for age. Ventricular syste m is normal. Basilar cisterns are patent. There are no extra-axial collections. Flow-voids for the ma [place]ie intracranial vessels are present. There is no intracranial mass. There is no abnormal enhancement or mass within the internal auditory canals. There is no fluid within the mastoid air cells. A small mucous retention cyst within the right maxillary sinus is noted. A few punctate white matter T2 hype rintense foci suggest minimal small vessel disease which is less than expected for age. There is mild age-appropriate atrophy. Calvarial signal is maintained. Orbits are unremarkable. IMPRESSION: 1. Unremarkable MRI of the brain for age. 2. No abnormality within the internal auditory canals. Electronically signed by: Dean Kirkland M.D. 06/22/2018 10:31 PM
[2018-06-23 07:31] LABS: Basophils # (auto) 0.02 K/uL (0-0.2); Basophils % (auto) 0.2 %; Eosinophils # (auto) 0.13 K/uL (0-0.5); Eosinophils % (auto) 1.6 %; Hematocrit (blood only) 45.9 % (37-47); Hemoglobin 15.7 g/dL (12.0-16.0); Immature Granulocytes # (auto) 0.02 K/uL (0.00-0.02); Immature Granulocytes % (auto) 0.2 %; Lymphocytes % (auto) 20.4 %; Mean Corpuscular Hgb Conc 34.2 g/dL (32-36); Mean Corpuscular Volume 91.1 fL (80-100); Mean Platelet Volume 10.8 fL (7.4-10.4); Monocytes # (auto) 0.69 K/uL (0.11-0.59); Monocytes % (auto) 8.3 %; Neutrophils # (auto) 5.78 K/uL (1.4-6.5); Neutrophils % (auto) 69.3 %; Platelet Count 223 K/uL (130-400); RDW Coefficient of Variation 13.1 % (11.5-14.5); RDW Standard Deviation 43.2 fL (36.4-46.3); Red Blood Count 5.04 M/uL (4.2-5.4); White Blood Count 8.34 K/uL (4.8-10.8)
[2018-06-23 07:51] LABS: Calcium 8.6 mg/dl (8.5-10.1); Creatinine Clr Calc Pharmacy 55.7 ml/min; Est GFR (African American) 70.6; Est GFR (Non-African American) 60.9; Potassium 3.7 mmol/L (3.5-5.1)
[2018-06-23] MEDS: guaiFENesin 600 MG TABCR PO SCH ×2 (08:10→21:05)
[2018-06-23] MEDS: ENOXAPARIN INJ 40 MG/0.4 ML SYR SQ SCH (08:10)
[2018-06-23] MEDS: PSEUDOEPHEDRINE HCL 30 MG TAB PO SCH (08:10)
--- NOTE | 2018-06-23 11:46 | Hospitalist Progress Note ---
Date of Service June 23, 2018 Assessment & Plan (1) Peripheral vertigo: History and physical exam point to a peripheral source of vertigo but will r/o potential sources of central vertigo Sx most consistent with acute sinusitis, serous otitis media vs vestibular neuritis vs menieres, BPPV -admit to telemetry -Pseudophedrine 60mg q12 for decongestant -IVF NS 125cc/hr x 2 L and re eval in a.m. -Clinically little bit better today -Denies any associated neurological symptoms -Neurology consult-await input -We will have an MRI today -Matty maneuver following the MRI -MRI has been -Clinically a little bit -Continue with physical therapy especially (2) Sinusitis: ---Levaquin 750mg daily for probably acute sinusitis -Has been improving we will continue antibiotic for now Noted to have UTI With Citrobacter Kssery and gram-negative bacilli So far sensitive to Levaquin (3) Serous otitis media: No treatment needed Has been on Levaquin for possible sinusitis (4) DVT prophylaxis: -lovenox Disposition: D/C to home when able Follow up: Dr. Del Rio upon discharge Likely discharge this afternoon Subjective She is a 73-year-old female with significant past medical history of benign paroxysmal positional vertigo was admitted with another episode of vertigo and noted to have acute maxillary sinusitis. 06/22 The patient was seen and examined in medical telemetry unit Heart dizziness has been better since admission Complains to have some sinus pain and also pain in the right ear Denies any neurological symptoms 06/23 The patient was seen and examined in telemetry Her dizziness is better but not yet gone completely MRI has been negative for any acoustic neuroma//mass Will ask for Matty maneuver Physical Exam 2 Vital Signs (Past 24 Hours): Last Vital Signs Temp 36.8 C 06/23/18 07:14 Pulse 78 06/23/18 08:00 Resp 18 06/23/18 07:14 BP 119/76 06/23/18 07:14 Pulse Ox 90 06/23/18 07:14 Constitutional: WD/WN, vitals as above Eyes: PERRL, conjunctivae normal, anicteric sclerae ENMT: external ear and nose normal, oropharynx normal Respiratory: normal respiratory effort, lungs clear to auscultation Cardiovascular: Rate/Rhythm: regular rate and regular rhythm Heart Sounds: normal S1 and normal S2 Gastrointestinal (Abdomen): normal bowel sounds, soft, nontender, no hepatosplenomegaly Neurologic: PERRL, EOMI, accommodation nl, no face palsy, no dysarthria Results & Data Laboratory Results Short CBC 06/23/18 Range/Units 07:06 WBC 8.34 (4.8-10.8) K/uL Hgb 15.7 (12.0-16.0) g/dL Hct 45.9 (37-47) % Plt Count 223 (130-400) K/uL BMP 06/23/18 07:06 Sodium 139 Potassium 3.7 Chloride 108 H Carbon Dioxide 24 BUN 10 D Creatinine 0.92 Glucose 84 Calcium 8.6 Cardiac Enzymes 06/22/18 Range/Units 19:43 Troponin I < 0.015 (0-0.045) ng/ml Medications Administered Current Inpatient Medications Acetaminophen (Tylenol) 650 mg PO Q4H PRN PRN Reason: Pain or Fever Stop: 07/21/18 19:33 Last Admin: 06/22/18 16:24 Dose: 650 mg Enoxaparin Sodium (Lovenox) 40 mg SQ QAM [facility] Stop: 07/22/18 08:59 Last Admin: 06/23/18 08:10 Dose: 40 mg Gadobutrol (Gadavist 65ml) 8 ml IV ONCE PRN PRN Reason: Interaction Checking Stop: 06/26/18 22:01 Last Admin: 06/22/18 22:03 Dose: 8 ml Gadoxetate Disodium (Eovist) 8 ml IV ONCE PRN PRN Reason: Interaction Checking Stop: 06/26/18 22:01 Guaifenesin (Mucinex) 600 mg PO Q12H [facility] Stop: 07/21/18 20:59 Last Admin: 06/23/18 08:10 Dose: 600 mg Levofloxacin/Dextrose (Levaquin/D5w) 750 mg in 150 mls @ 100 mls/hr IV Q24H [facility] ; Protocol Stop: 07/01/18 20:59 Last Infusion: 06/23/18 00:12 Dose: Infused Ioversol (Optiray 320 125ml) 120 ml IV ONCE PRN PRN Reason: Interaction Checking Stop: 06/25/18 13:01 Last Admin: 06/21/18 13:02 Dose: 120 ml Ondansetron HCl (Zofran) 4 mg IV Q6H PRN PRN Reason: Nausea Stop: 07/21/18 19:33 Promethazine HCl (Phenergan) 25 mg PO Q6H PRN PRN Reason: Nausea And Vomiting Stop: 07/21/18 19:33 Pseudoephedrine HCl (Suphedrine Sinus Congestion) 60 mg PO Q12H [facility] Stop: 06/23/18 20:59 Last Admin: 06/23/18 08:10 Dose: 60 mg _ (1) Peripheral vertigo Laterality: right Qualified Code(s): H81.391 - Other peripheral vertigo, right ear (2) Sinusitis Sinusitis location: maxillary Chronicity: acute Recurrence: non-recurrent Qualified Code(s): J01.00 - Acute maxillary sinusitis, unspecified (3) Serous otitis media Chronicity: acute Laterality: right Recurrence: non-recurrent Qualified Code(s): H65.01 - Acute serous otitis media, right ear
--- NOTE | 2018-06-23 14:25 | Neurology Progress Note ---
Date of Service June 23, 2018 Assessment & Plan (1) Vertigo: 1. MRI IAC with and without no lesions or other abnormalities 2. needs PT OT evaluation and manipulation with Matty- improvement with maneuver 3. continue meclizine and zofran as needed - continue until symptoms resolve 4. if patient still symptomatic at discharge will need formal Matty with [facility] 5. fall precautions 6. further recommendation once MRI IAC completed. 7. out patient ENT for tinnitis and hearing loss no follow up needed with neurology- will see her PRN Supervising Physician Co-Signing Physician Notes I have seen and discussed above patient with Dr Nixon Hanson, neurology I have seen Mrs. Thompson today, reviewed her imaging studies, have reviewed the above note and have examined her. Currently she is much improved but still does not feel secure going home and apparently going to be discharged tomorrow after another night here in the hospital receiving medications. The physical therapist did provide some relief with what I believe was undoubtedly an Matty- like maneuver so there are some elements of all of this that suggest benign positional vertigo but the history really suggests a more protracted vertiginous syndrome with loss of hearing, tinnitus and fullness and again despite her age one would have to wonder about a late life onset Mnire's syndrome Imaging studies have failed to show any evidence for an intracanalicular acoustic neuroma or other abnormalities in the right posterior fossa examination with the exception of some mild residual position change related vertigo is neurologically normal. At this point then neurology does not need to see her on a regular basis and she should follow-up with the balance center in [place] for an outpatient assessment of her overall vestibular and auditory function Nixon Danielson Leah is a 73 year old female with PMH of BPPV and Gerd who presents to [facility] ED secondary to vertigo like sx x 1 day. She woke at 2am with dizziness, spinning like sensation. Took meclizine with out relief. At 6am tried meclizine again with zofran with out relief. She then tried some exercises she had been given which she could not tolerate. Movement of her head made the dizziness and nausea worse. She was unable to walk and the symptoms usually resolve once she takes meclizine and zofran. 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 She states the hearing loss started about 8 years ago after she hit her head on a truck door frame. Denies hx of tobacco use, +daily < 4 oz glass wine with dinner. Today she is sitting up in bed and feeling somewhat better after the PT Matty maneuver. She is requesting a script to go to [facility] for additional treatments. denies CP, SOB, one sided weakness, numbness tingling, vision changes, current N/V. Physical Exam 2 Vital Signs (Past 24 Hours): Last Vital Signs Temp 36.8 C 06/23/18 07:14 Pulse 83 06/23/18 12:00 Resp 18 06/23/18 07:14 BP 124/79 06/23/18 12:00 Pulse Ox 95 06/23/18 12:00 Gen: alert NAD lungs CTA CV RRR oriented to self place time Strength bilateral UE 5/5 biceps triceps hand developer architect LE 5/5 hip flex plantar flex ext Results & Data Laboratory Results Abnormal lab results 06/23/18 06/23/18 Range/Units 07:06 07:06 MPV 10.8 H (7.4-10.4) fL Warrick # (Auto) 0.69 H (0.11-0.59) K/uL Chloride 108 H (98-107) mmol/L Diagnostic Findings MRI combo brain IAC- Unremarkable MRI of the brain for age. No abnormality within the internal auditory canals
[2018-06-23] MEDS: levoFLOXacin 750 MG TAB PO SCH (21:05)
--- NOTE | 2018-06-23 23:05 | Emergency Department Note ---
Entered by Khanh Contreras acting as a scribe for History of Present Illness General Chief complaint: Vertigo Time Seen by Provider: 06/21/18 11:45 Source: patient History of Present Illness Provider complaint: Vertigo Onset (ago): hour(s) (around 0200) 10 Location: head Quality: + other (vertigo) Exacerbated By: + movement and + other (opening eyes) Associated symptoms: + denies other symptoms (cold symptoms, abdominal pain, problmes moving bowels or urinating, diarrhea, numbness/ tingling), + headaches and + nausea/vomiting; no chest pain, no cough, no fever/chills and no shortness of breath The patient is a 73 year old female who presents to the Emergency Room with complaints of vertigo. The patient states she has had episodes of dizziness for approximately two years and states that she is on Meclizine. She reports that she has seen a neurologist in the past. The patient notes she started feeling dizzy this morning around 0200 and took her medication which did not alleviate her symptoms. She adds that she was hospitalized one previous time for her vertigo when the medication was not alleviating her symptoms. She states she took another dose of her Meclizine this morning at 0600 and an anti-nausea pill with no change in symptoms. The patient thought her symptoms could be related to sinus issues so she also tried using Flonase. She reports she was vomiting in the ambulance en route. The patient added that her dizziness is made worse by movement, and opening her eyes. The patient reports she also has a headache in addition to right ear pain. The patient denies recent fevers, a cold, cough, chest pain, shortness of breath, abdominal pain, problems moving her bowels, diarrhea, trouble urinating, or any numbness or tingling. Home Medications Home Medications Medication Instructions Recorded Confirmed Type meclizine 25 mg PO TID PRN 06/21/18 06/21/18 History Allergies Allergy/AdvReac Type Severity Reaction Status Date / Time amoxicillin Allergy Severe hives Verified 06/21/18 18:55 morphine Allergy Severe CHEST Verified 06/21/18 13:20 TIGHTNESS, RASH, DYSPNEA ampicillin Allergy Unknown SEVERE Verified 06/21/18 13:20 HIVES chicken derived Allergy Unknown diarrhea Verified 06/21/18 18:55 alendronate sodium AdvReac Unknown GI SYMPTOMS Verified 06/21/18 13:20 black pepper AdvReac Unknown COUGHING Verified 06/21/18 13:20 Past Med/Surg History Medical History BPPV (benign paroxysmal positional vertigo) GERD (gastroesophageal reflux disease) Vertigo (Acute) Surgical History History of tubal ligation History of tonsillectomy and adenoidectomy History of bilateral total hip arthroplasty History of cataract extraction History of blepharoplasty History of open reduction and internal fixation (ORIF) procedure L ankle Family History Sister Hemorrhagic cerebrovascular accident (CVA) Mother Breast cancer Father Leukemia Social History marital status: Current Living Situation: Spouse Other Information That Helps Us Care for You: No Feels Safe at Home: Yes Smoking Status: Former smoker Years Smoked: 1 Cigarettes per Day: very remotely Hx Alcohol Use: Yes Alcohol type: wine Alcohol Intake Frequency: 0-2 drinks per day Alcohol Intake Frequency Comment: 1 < 4 oz glass of wine daily Hx Substance Use: No Beliefs That Will Affect Care: None Communication Ability: Effective Review of Systems See HPI for pertinent positives & negatives. and A total of 10 systems reviewed and were otherwise negative Physical Exam Vital Signs Vital Signs - 24 hr 06/22/18 23:11 06/23/18 00:00 06/23/18 03:45 Temperature 36.9 C 36.5 C Temperature Source Oral Oral Pulse Rate 86 Pulse Rate [Right Finger] 65 76 Pulse Strength [Right Finger] Respiratory Rate 18 18 Respiratory Effort / Characteristics Respiratory Depth Respiratory Pattern Blood Pressure [Left Arm] 132/76 Blood Pressure [Right Arm] 120/80 Blood Pressure Mean [Left Arm] 94 Blood Pressure Mean [Right Arm] 93 Blood Pressure Position [Left Arm] Lying Blood Pressure Position [Right Arm] Lying Pulse Oximetry 94 95 Oxygen Delivery Method Room Air Room Air 06/23/18 07:14 06/23/18 08:00 06/23/18 12:00 Temperature 36.8 C Temperature Source Oral Oral Pulse Rate 78 Pulse Rate [Right Finger] 77 83 Pulse Strength [Right Finger] Normal Respiratory Rate 18 Respiratory Effort / Characteristics Respiratory Depth Respiratory Pattern Blood Pressure [Left Arm] Blood Pressure [Right Arm] 119/76 124/79 Blood Pressure Mean [Left Arm] Blood Pressure Mean [Right Arm] 90 94 Blood Pressure Position [Left Arm] Blood Pressure Position [Right Arm] Lying Lying Pulse Oximetry 90 95 Oxygen Delivery Method Room Air 06/23/18 15:24 06/23/18 15:40 06/23/18 19:24 Temperature 36.6 C 36.7 C Temperature Source Oral Oral Pulse Rate 61 Pulse Rate [Right Finger] 82 85 Pulse Strength [Right Finger] Respiratory Rate 18 18 Respiratory Effort / Characteristics Respiratory Depth Respiratory Pattern Blood Pressure [Left Arm] Blood Pressure [Right Arm] 147/80 H 129/87 Blood Pressure Mean [Left Arm] Blood Pressure Mean [Right Arm] 102 101 Blood Pressure Position [Left Arm] Blood Pressure Position [Right Arm] Lying Lying Pulse Oximetry 96 95 Oxygen Delivery Method Room Air Room Air 06/23/18 22:00 06/23/18 22:56 Temperature 36.6 C Temperature Source Oral Pulse Rate Pulse Rate [Right Finger] 84 Pulse Strength [Right Finger] Respiratory Rate 18 Respiratory Effort / Characteristics Non-Labored Spontaneous Respiratory Depth Normal Respiratory Pattern Regular Blood Pressure [Left Arm] Blood Pressure [Right Arm] 124/78 Blood Pressure Mean [Left Arm] Blood Pressure Mean [Right Arm] 93 Blood Pressure Position [Left Arm] Blood Pressure Position [Right Arm] Lying Pulse Oximetry 94 Oxygen Delivery Method Room Air Room Air GENERAL: alert, ill appearing, diaphoretic, well nourished, no distress, non- toxic EYE EXAM: normal conjunctiva, PERRL and EOM's grossly intact, horizontal nystagmus OROPHARYNX: no exudate, no erythema, lips, buccal mucosa, and tongue normal and mucous membranes are moist, no edema along the auditory canal, TMs are clear bilaterally NECK: supple, no nuchal rigidity, no adenopathy, non-tender LUNGS: Clear to auscultation. Normal chest wall mechanics, no wheezes, rhonchi, or rales HEART: no murmurs, S1 normal and S2 normal ABDOMEN: abdomen soft, non-tender, normo-active bowel sounds, no masses, no rebound or guarding. BACK: Back is symmetrical on inspection and there is no deformity, no midline tenderness, no CVA tenderness. SKIN: no rashes and no bruising UPPER EXTREMITIES: upper extremities are grossly normal. FROM, nml pulses b/l. LOWER EXTREMITIES: No pitting edema. FROM, nml pulses b/l. NEURO EXAM: Normal sensorium, cranial nerves II-XII intact, normal speech, no weakness of arms, no weakness of legs. No facial droop. Could not complete additional cerebellar testing or HINTS exam due to severity of symptoms even with opening eyes. Course 1150: Past medical records reviewed. The patient was evaluated in room C10, and a complete history and physical examination were performed. 1210: Review of EMR shows that the patient had a normal MRI of her brain in June 2014. The patient also had a normal CT of her head in January 2017. 1333: I reassessed the patient. She says that she is not nauseated anymore but is still dizzy. She answered several questions at bedside from her family. 1606: I checked on the patient and she reports her dizziness and nausea both have improved. 1727: I checked the patient and she failed her ambulatory trial. 1735: I reviewed the patient's case with Mecca Knight, [place] [facility]ist. She will evaluate the patient for further management. Administered Medications Acetaminophen (Tylenol) 650 mg PO Q4H PRN PRN Reason: Pain or Fever Stop: 07/21/18 19:33 Last Admin: 06/22/18 16:24 Dose: 650 mg Enoxaparin Sodium (Lovenox) 40 mg SQ QAM [facility] Stop: 07/22/18 08:59 Last Admin: 06/23/18 08:10 Dose: 40 mg Admin: 06/22/18 08:28 Dose: 40 mg Gadobutrol (Gadavist 65ml) 8 ml IV ONCE PRN PRN Reason: Interaction Checking Stop: 06/26/18 22:01 Last Admin: 06/22/18 22:03 Dose: 8 ml Guaifenesin (Mucinex) 600 mg PO Q12H [facility] Stop: 07/21/18 20:59 Last Admin: 06/23/18 21:05 Dose: 600 mg Admin: 06/23/18 08:10 Dose: 600 mg Admin: 06/22/18 20:17 Dose: 600 mg Admin: 06/22/18 08:28 Dose: 600 mg Admin: 06/21/18 21:12 Dose: 600 mg Ioversol (Optiray 320 125ml) 120 ml IV ONCE PRN PRN Reason: Interaction Checking Stop: 06/25/18 13:01 Last Admin: 06/21/18 13:02 Dose: 120 ml Levofloxacin (Levaquin) 750 mg PO DAILY@2100 [facility] Stop: 06/30/18 21:01 Last Admin: 06/23/18 21:05 Dose: 750 mg Discontinued Medications Diazepam (Valium) 2 mg IV NOW STA Stop: 06/21/18 12:00 Last Admin: 06/21/18 12:14 Dose: 2 mg Diazepam (Valium) Confirm Administered Dose 5 mg .ROUTE .[facility]-MED ONE Stop: 06/21/18 12:10 Last Admin: 06/21/18 12:14 Dose: Not Given Diazepam (Valium) 2 mg IV NOW STA Stop: 06/21/18 13:35 Last Admin: 06/21/18 14:07 Dose: 2 mg Diazepam (Valium) 2 mg IV NOW STA Stop: 06/21/18 17:31 Last Admin: 06/21/18 17:48 Dose: 2 mg Diazepam (Valium) Confirm Administered Dose 5 mg .ROUTE .[employer]-MED ONE Stop: 06/21/18 17:45 Last Admin: 06/21/18 17:48 Dose: Not Given Diphenhydramine HCl (Benadryl) 12.5 mg IV NOW STA Stop: 06/21/18 12:00 Last Admin: 06/21/18 12:15 Dose: 12.5 mg Prochlorperazine 5 mg/ Syringe 5 mls @ 5 mls/min IV ONE ONE Stop: 06/21/18 12:00 Last Admin: 06/21/18 12:15 Dose: 5 mls/min Sodium Chloride (Nss) 500 mls @ 125 mls/hr IV .Q4H [facility] Stop: 07/21/18 11:59 Last Admin: 06/21/18 20:18 Dose: Not Given Infusion: 06/21/18 17:35 Dose: 0 mls/hr Admin: 06/21/18 12:15 Dose: 125 mls/hr Sodium Chloride (Nss 1000ml) 1,000 mls @ 125 mls/hr IV .Q8H RONDA Stop: 06/22/18 12:29 Last Infusion: 06/23/18 00:35 Dose: Infusion: 06/22/18 12:39 Dose: 0 mls/hr Admin: 06/22/18 05:25 Dose: 125 mls/hr Infusion: 06/22/18 05:21 Dose: Admin: 06/21/18 20:59 Dose: 125 mls/hr Levofloxacin/Dextrose (Levaquin/D5w) 750 mg in 150 mls @ 100 mls/hr IV Q24H RONDA ; Protocol Stop: 07/01/18 20:59 Last Infusion: 06/23/18 00:12 Dose: 0 mls/hr Admin: 06/22/18 22:02 Dose: 100 mls/hr Infusion: 06/21/18 22:50 Dose: 0 mls/hr Admin: 06/21/18 21:11 Dose: 100 mls/hr Lorazepam (Ativan) 0.25 mg in 0.5 mls @ 0.5 mls/min IV NOW STA Stop: 06/22/18 20:26 Last Admin: 06/22/18 20:51 Dose: 0.5 mls/min Meclizine HCl (Antivert) 25 mg PO NOW STA Stop: 06/21/18 16:54 Last Admin: 06/21/18 16:57 Dose: 25 mg Ondansetron HCl (Zofran) 4 mg IV NOW STA Stop: 06/21/18 17:31 Last Admin: 06/21/18 17:48 Dose: 4 mg Prochlorperazine (Compazine) Confirm Administered Dose 10 mg .ROUTE .[facility]-MED ONE Stop: 06/21/18 12:12 Last Admin: 06/21/18 12:15 Dose: Not Given Pseudoephedrine HCl (Suphedrine Sinus Congestion) 60 mg PO Q12H RONDA Stop: 06/23/18 20:59 Last Admin: 06/23/18 08:10 Dose: 60 mg Admin: 06/22/18 20:17 Dose: 60 mg Admin: 06/22/18 08:28 Dose: 60 mg Admin: 06/21/18 21:12 Dose: 60 mg Medical Decision Making Differential Diagnosis Differential diagnosis: Etiologies such as benign positional vertigo, labrynthitis, dehydration, hypovolemia, anemia, tumor, infection, hypoglycemia, electrolyte abnormalities, cardiac sources, toxicological sources, central neurologic process, as well as others were entertained. Medical Records Attestation: I reviewed the patient's medical records. Home Medications Current Medication List: was personally reviewed by me Laboratory Data Attestation: I reviewed the patient's lab results. Result diagrams: 06/23/18 07:06 06/23/18 07:06 Lab Results 06/21/18 06/21/18 06/21/18 Range/Units 11:55 11:55 17:32 WBC 7.49 (4.8-10.8) K/uL RBC 5.22 (4.2-5.4) M/uL Hgb 16.1 H (12.0-16.0) g/dL Hct 47.9 H (37-47) % MCV 91.8 (80-100) fL MCH 30.8 (25-34) pg MCHC 33.6 (32-36) g/dL RDW Std Deviation 43.8 (36.4-46.3) fL RDW Coeff of Tereso 13.2 (11.5-14.5) % Plt Count 226 (130-400) K/uL MPV 10.9 H (7.4-10.4) fL Immature Gran % (Auto) 0.9 % Neut % (Auto) 71.8 % Lymph % (Auto) 20.6 % Nye % (Auto) 5.3 % Eos % (Auto) 1.3 % Baso % (Auto) 0.1 % Immature Gran # (Auto) 0.07 H (0.00-0.02) K/uL Neut # (Auto) 5.37 (1.4-6.5) K/uL Lymph # (Auto) 1.54 (1.2-3.4) K/uL Nye # (Auto) 0.40 (0.11-0.59) K/uL Eos # (Auto) 0.10 (0-0.5) K/uL Baso # (Auto) 0.01 (0-0.2) K/uL PT (9.0-12.0) Seconds INR (0.9-1.1) APTT (21.0-31.0) Seconds PTT Ratio Sodium 139 (136-145) mmol/L Potassium 3.9 (3.5-5.1) mmol/L Chloride 105 (98-107) mmol/L Carbon Dioxide 23 (21-32) mmol/L Anion Gap 11.0 (3-11) BUN 21 H (7-18) mg/dl Creatinine 1.07 (0.6-1.2) mg/dl Est Cr Clr Drug Dosing 48.9 ml/min Est GFR ( Amer) 58.8 Est GFR (Non-Af Amer) 50.7 BUN/Creatinine Ratio 19.5 (10-20) Glucose 135 H (70-99) mg/dl Estimat Average Glucose mg/dl Hemoglobin A1c (4.5-5.6) % Calcium 8.7 (8.5-10.1) mg/dl Magnesium 2.1 (1.8-2.4) mg/dl Total Bilirubin 0.5 (0.2-1) mg/dl AST 15 (15-37) U/L ALT 22 (12-78) U/L Alkaline Phosphatase 66 (45-117) U/L Troponin I < 0.015 (0-0.045) ng/ml Total Protein 7.0 (6.4-8.2) gm/dl Albumin 3.6 (3.4-5.0) gm/dl Globulin 3.4 (2.5-4.0) gm/dl Albumin/Globulin Ratio 1.0 (0.9-2) Triglycerides (0-150) mg/dl Cholesterol (0-200) mg/dl LDL Cholesterol, Calc mg/dl VLDL Cholesterol, Calc mg/dl HDL Cholesterol mg/dl Cholesterol/HDL Ratio TSH 1.660 (0.300-4.500) uIu/ml Urine Color Yellow Urine Appearance Clear (Clear) Urine pH 5.0 (4.5-7.5) Ur Specific [place] > 1.045 H (1.000-1.030) Urine Protein Negative (Negative) Urine Glucose (UA) Negative (Negative) Urine Ketones Negative (Negative) Urine Blood Negative (Negative) Urine Nitrite Negative (Negative) Urine Bilirubin Negative (Negative) Urine Urobilinogen Negative (Negative) Ur Leukocyte Esterase 1+ H (Negative) Urine WBC (Auto) >30 H (0-5) /hpf Urine RBC (Auto) 0-4 (0-4) /hpf U Hyaline Cast (Auto) 1-5 (0-5) /lpf U Epithel Cells (Auto) 5-10 H (0-5) /lpf Urine Bacteria (Auto) Negative (Negative) Urine Yeast Not Reportable 06/21/18 06/21/18 06/22/18 Range/Units 20:55 22:23 05:42 WBC 9.36 (4.8-10.8) K/uL RBC 4.91 (4.2-5.4) M/uL Hgb 15.2 (12.0-16.0) g/dL Hct 45.7 (37-47) % MCV 93.1 (80-100) fL MCH 31.0 (25-34) pg MCHC 33.3 (32-36) g/dL RDW Std Deviation 45.2 (36.4-46.3) fL RDW Coeff of Tereso 13.3 (11.5-14.5) % Plt Count 225 (130-400) K/uL MPV 10.7 H (7.4-10.4) fL Immature Gran % (Auto) 0.3 % Neut % (Auto) 66.6 % Lymph % (Auto) 20.6 % Nye % (Auto) 11.2 % Eos % (Auto) 1.3 % Baso % (Auto) 0.0 % Immature Gran # (Auto) 0.03 H (0.00-0.02) K/uL Neut # (Auto) 6.23 (1.4-6.5) K/uL Lymph # (Auto) 1.93 (1.2-3.4) K/uL Nye # (Auto) 1.05 H (0.11-0.59) K/uL Eos # (Auto) 0.12 (0-0.5) K/uL Baso # (Auto) 0.00 (0-0.2) K/uL PT 10.8 (9.0-12.0) Seconds INR 1.1 (0.9-1.1) APTT 26.8 (21.0-31.0) Seconds PTT Ratio 1.0 Sodium (136-145) mmol/L Potassium (3.5-5.1) mmol/L Chloride (98-107) mmol/L Carbon Dioxide (21-32) mmol/L Anion Gap (3-11) BUN (7-18) mg/dl Creatinine (0.6-1.2) mg/dl Est Cr Clr Drug Dosing ml/min Est GFR ( Amer) Est GFR (Non-Af Amer) BUN/Creatinine Ratio (10-20) Glucose (70-99) mg/dl Estimat Average Glucose mg/dl Hemoglobin A1c (4.5-5.6) % Calcium (8.5-10.1) mg/dl Magnesium (1.8-2.4) mg/dl Total Bilirubin (0.2-1) mg/dl AST (15-37) U/L ALT (12-78) U/L Alkaline Phosphatase (45-117) U/L Troponin I (0-0.045) ng/ml Total Protein (6.4-8.2) gm/dl Albumin (3.4-5.0) gm/dl Globulin (2.5-4.0) gm/dl Albumin/Globulin Ratio (0.9-2) Triglycerides (0-150) mg/dl Cholesterol (0-200) mg/dl LDL Cholesterol, Calc mg/dl VLDL Cholesterol, Calc mg/dl HDL Cholesterol mg/dl Cholesterol/HDL Ratio TSH (0.300-4.500) uIu/ml Urine Color Yellow Urine Appearance Cloudy H (Clear) Urine pH 5.0 (4.5-7.5) Ur Specific [place] > 1.045 H (1.000-1.030) Urine Protein Negative (Negative) Urine Glucose (UA) Negative (Negative) Urine Ketones Trace H (Negative) Urine Blood Trace H (Negative) Urine Nitrite Negative (Negative) Urine Bilirubin Negative (Negative) Urine Urobilinogen Negative (Negative) Ur Leukocyte Esterase 2+ H (Negative) Urine WBC (Auto) >30 H (0-5) /hpf Urine RBC (Auto) 0-4 (0-4) /hpf U Hyaline Cast (Auto) 1-5 (0-5) /lpf U Epithel Cells (Auto) 10-20 H (0-5) /lpf Urine Bacteria (Auto) 1+ H (Negative) Urine Yeast 06/22/18 06/22/18 06/22/18 Range/Units 05:42 05:42 19:43 WBC (4.8-10.8) K/uL RBC (4.2-5.4) M/uL Hgb (12.0-16.0) g/dL Hct (37-47) % MCV (80-100) fL MCH (25-34) pg MCHC (32-36) g/dL RDW Std Deviation (36.4-46.3) fL RDW Coeff of Tereso (11.5-14.5) % Plt Count (130-400) K/uL MPV (7.4-10.4) fL Immature Gran % (Auto) % Neut % (Auto) % Lymph % (Auto) % Nye % (Auto) % Eos % (Auto) % Baso % (Auto) % Immature Gran # (Auto) (0.00-0.02) K/uL Neut # (Auto) (1.4-6.5) K/uL Lymph # (Auto) (1.2-3.4) K/uL Nye # (Auto) (0.11-0.59) K/uL Eos # (Auto) (0-0.5) K/uL Baso # (Auto) (0-0.2) K/uL PT (9.0-12.0) Seconds INR (0.9-1.1) APTT (21.0-31.0) Seconds PTT Ratio Sodium 140 (136-145) mmol/L Potassium 3.6 (3.5-5.1) mmol/L Chloride 108 H (98-107) mmol/L Carbon Dioxide 25 (21-32) mmol/L Anion Gap 7.0 (3-11) BUN 15 (7-18) mg/dl Creatinine 1.02 (0.6-1.2) mg/dl Est Cr Clr Drug Dosing 50.3 ml/min Est GFR ( Amer) 62.3 Est GFR (Non-Af Amer) 53.8 BUN/Creatinine Ratio 15.1 (10-20) Glucose 96 (70-99) mg/dl Estimat Average Glucose 111 mg/dl Hemoglobin A1c 5.5 (4.5-5.6) % Calcium 8.1 L (8.5-10.1) mg/dl Magnesium (1.8-2.4) mg/dl Total Bilirubin (0.2-1) mg/dl AST (15-37) U/L ALT (12-78) U/L Alkaline Phosphatase (45-117) U/L Troponin I < 0.015 (0-0.045) ng/ml Total Protein (6.4-8.2) gm/dl Albumin (3.4-5.0) gm/dl Globulin (2.5-4.0) gm/dl Albumin/Globulin Ratio (0.9-2) Triglycerides 149 (0-150) mg/dl Cholesterol 153 (0-200) mg/dl LDL Cholesterol, Calc 78 mg/dl VLDL Cholesterol, Calc 30 mg/dl HDL Cholesterol 45 mg/dl Cholesterol/HDL Ratio 3 TSH (0.300-4.500) uIu/ml Urine Color Urine Appearance (Clear) Urine pH (4.5-7.5) Ur Specific [place] (1.000-1.030) Urine Protein (Negative) Urine Glucose (UA) (Negative) Urine Ketones (Negative) Urine Blood (Negative) Urine Nitrite (Negative) Urine Bilirubin (Negative) Urine Urobilinogen (Negative) Ur Leukocyte Esterase (Negative) Urine WBC (Auto) (0-5) /hpf Urine RBC (Auto) (0-4) /hpf U Hyaline Cast (Auto) (0-5) /lpf U Epithel Cells (Auto) (0-5) /lpf Urine Bacteria (Auto) (Negative) Urine Yeast 06/23/18 06/23/18 Range/Units 07:06 07:06 WBC 8.34 (4.8-10.8) K/uL RBC 5.04 (4.2-5.4) M/uL Hgb 15.7 (12.0-16.0) g/dL Hct 45.9 (37-47) % MCV 91.1 (80-100) fL MCH 31.2 (25-34) pg MCHC 34.2 (32-36) g/dL RDW Std Deviation 43.2 (36.4-46.3) fL RDW Coeff of Tereso 13.1 (11.5-14.5) % Plt Count 223 (130-400) K/uL MPV 10.8 H (7.4-10.4) fL Immature Gran % (Auto) 0.2 % Neut % (Auto) 69.3 % Lymph % (Auto) 20.4 % Nye % (Auto) 8.3 % Eos % (Auto) 1.6 % Baso % (Auto) 0.2 % Immature Gran # (Auto) 0.02 (0.00-0.02) K/uL Neut # (Auto) 5.78 (1.4-6.5) K/uL Lymph # (Auto) 1.70 (1.2-3.4) K/uL Nye # (Auto) 0.69 H (0.11-0.59) K/uL Eos # (Auto) 0.13 (0-0.5) K/uL Baso # (Auto) 0.02 (0-0.2) K/uL PT (9.0-12.0) Seconds INR (0.9-1.1) APTT (21.0-31.0) Seconds PTT Ratio Sodium 139 (136-145) mmol/L Potassium 3.7 (3.5-5.1) mmol/L Chloride 108 H (98-107) mmol/L Carbon Dioxide 24 (21-32) mmol/L Anion Gap 7.0 (3-11) BUN 10 D (7-18) mg/dl Creatinine 0.92 (0.6-1.2) mg/dl Est Cr Clr Drug Dosing 55.7 ml/min Est GFR ( Amer) 70.6 Est GFR (Non-Af Amer) 60.9 BUN/Creatinine Ratio 11.0 (10-20) Glucose 84 (70-99) mg/dl Estimat Average Glucose mg/dl Hemoglobin A1c (4.5-5.6) % Calcium 8.6 (8.5-10.1) mg/dl Magnesium (1.8-2.4) mg/dl Total Bilirubin (0.2-1) mg/dl AST (15-37) U/L ALT (12-78) U/L Alkaline Phosphatase (45-117) U/L Troponin I (0-0.045) ng/ml Total Protein (6.4-8.2) gm/dl Albumin (3.4-5.0) gm/dl Globulin (2.5-4.0) gm/dl Albumin/Globulin Ratio (0.9-2) Triglycerides (0-150) mg/dl Cholesterol (0-200) mg/dl LDL Cholesterol, Calc mg/dl VLDL Cholesterol, Calc mg/dl HDL Cholesterol mg/dl Cholesterol/HDL Ratio TSH (0.300-4.500) uIu/ml Urine Color Urine Appearance (Clear) Urine pH (4.5-7.5) Ur Specific [place] (1.000-1.030) Urine Protein (Negative) Urine Glucose (UA) (Negative) Urine Ketones (Negative) Urine Blood (Negative) Urine Nitrite (Negative) Urine Bilirubin (Negative) Urine Urobilinogen (Negative) Ur Leukocyte Esterase (Negative) Urine WBC (Auto) (0-5) /hpf Urine RBC (Auto) (0-4) /hpf U Hyaline Cast (Auto) (0-5) /lpf U Epithel Cells (Auto) (0-5) /lpf Urine Bacteria (Auto) (Negative) Urine Yeast Imaging Data Attestation: I personally reviewed and interpreted this imaging study as follows : Radiologist's Impression: CT angio neck with con CLINICAL HISTORY: 73 years-old Female presenting with petersen, neck pain, dizzy, vomiting. TECHNIQUE: Multidetector CT angiography of the neck was performed after the administration of intravenous contrast. 3-D volumetric and/or maximum intensity projection (MIP) images were subsequently reconstructed for review. IV contrast : 120 mL of Optiray 320. A dose lowering technique was used consistent with the principles of ALARA (as low as reasonably achievable). Stenosis measurements were based on NASCET-like criteria. COMPARISON: Carotid Doppler ultrasound from 07/21/2014. CT DOSE (mGy.cm): The estimated cumulative dose is 1114.15. 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 Aortic arch: Normal aortic arch with patent origins of the branch vessels. Common trunk of the innominate and left common carotid arteries. Innominate artery: Patent. Right subclavian artery: Patent. Right common carotid artery: Patent. Right internal and external carotid arteries: Right carotid bifurcation patent. Right internal and external carotid arteries widely patent. Left common carotid artery: Patent. Left internal and external carotid arteries: Left carotid bifurcation patent. Left internal and external carotid arteries widely patent. Left subclavian artery: Patent. Kinking proximal to the takeoff of the left vertebral artery best appreciated on the sagittal MIP images. Vertebral arteries: Codominant vertebral arteries. Origins and courses of the bilateral vertebral arteries patent. Other: Limited intracranial evaluation within normal limits. Multiple thyroid nodules. Degenerative changes of the cervical spine. Lung apices clear. IMPRESSION: 1. No evidence of dissection, focal vessel occlusion, or significant stenosis of the cervical arteries. Electronically signed by: Ashkan Duggan M.D. 06/21/2018 1:[address] angio head w con CLINICAL HISTORY: 73 years-old Female presenting with petersen, dizzy, vomiting. TECHNIQUE: Multidetector CT angiography of the head was performed after the administration of intravenous contrast. 3-D volumetric and/or maximum intensity projection (MIP) images were subsequently reconstructed for review. IV contrast : 120 mL of Optiray 320. A dose lowering technique was used consistent with the principles of ALARA (as low as reasonably achievable). COMPARISON: None. CT DOSE (mGy.cm): The estimated cumulative dose is 1114.15 mGy.cm. 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 Anterior circulation: Intracranial portions of the internal carotid arteries patent to the level of the termini. Anterior cerebral arteries patent. Middle cerebral arteries patent. Anterior communicating artery patent. Posterior circulation: Codominant vertebral arteries. Intradural portions of the vertebral arteries patent. Posterior inferior cerebellar arteries patent. Basilar artery patent. Anterior inferior cerebellar arteries poorly visualized. Superior cerebellar arteries patent. Posterior cerebral arteries patent.Posterior communicating arteries patent. Dural venous sinuses: Patent. Other: Allowing for the phase of contrast, brain parenchyma within normal limits. Calvarium intact. IMPRESSION: 1. No evidence of aneurysm, focal vessel occlusion, or significant stenosis of the intracranial arteries. Electronically signed by: Ashkan Duggan M.D. 06/21/2018 1:[address] head/brain wo con CLINICAL HISTORY: 73 years-old Female presenting with petersen, dizziness, vomiting. TECHNIQUE: Multidetector CT imaging of the head was performed without the use of intravenous contrast. IV contrast: None. A dose lowering technique was used consistent with the principles of ALARA (as low as reasonably achievable). COMPARISON: 02/02/2017. CT DOSE (mGy.cm): The estimated cumulative dose is 1114.15. 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 Ventricles and sulci normal in size. No hemorrhage. Brain parenchyma normal in appearance with preserved jules-white differentiation. No acute territorial infarct. No mass effect or midline shift. No extra-axial fluid collection. Paranasal sinuses and mastoid air cells clear. Calvarium intact. Bilateral [place] lenses are absent. IMPRESSION: 1. No acute intracranial abnormality. Electronically signed by: Ashkan Duggan M.D. 06/21/2018 1:18 PM XR chest 1V portable CLINICAL HISTORY: 73 years-old Female presenting with dizzy, vomiting. TECHNIQUE: Portable upright AP view of the chest was obtained. COMPARISON: 07/21/2014. FINDINGS: Atherosclerosis of the aortic arch. Cardiac silhouette mildly enlarged. Minimal basilar opacities. No pleural effusion or pneumothorax. Degenerative changes of the glenohumeral joints. Upper abdomen normal. IMPRESSION: 1. Mild cardiomegaly. No cortes volume overload or pulmonary edema. 2. Suspected minimal bibasilar atelectasis. Electronically signed by: Ashkan uDggan M.D. 06/21/2018 12:20 PM ECG Data Attestation: I personally reviewed and interpreted this ECG as follows: Indication: other (dizziness) Rate (beats per minute): 76 Rhythm: normal sinus Findings: + other (normal axis and intervals) and + T-wave inversion (in lead 3) ; no PAC, no PVC, no ST depression, no ST elevation, no acute ischemic change and no ectopy Comparison ECG Date: no prior available Blood Pressure Blood Pressure Findings: Normal blood pressure MDM Narrative Pt here with severe vertigo that she and family report are worse than usual. Pt with hx of vertigo and uses meclizine at home intermittently. No recent URI symptoms or infection. Pt denies any bowel or bladder changes or symptoms. No recent trauma. Unable to perform adequate neuro testing at bedside due to severity of symptoms. Discussed with patient all results at bedside. CT and CTA negative. Labs negative. At time of discussion with hospitalist UA not resulted. I do not suspect occult Cerebellar infarct/bleed or vascular etiology. I do not suspect bacteremia/sepsis. VSS throughout. Pt unable to tolerate even standing at bedside without recurrent of severe symptoms despite multiple doses of medication to help lessen her symptoms. Impression & Plan Vertigo, Nausea, Vomiting Discharge Plan Visit Data *Final* Discharge Date/Time: 06/21/18 19:01 Chief Complaint: Vertigo ED Provider: Allie Smith Discharge Problem: Vertigo, Nausea, Vomiting Patient Disposition: Admitted As Inpatient Condition: Fair Discharge Instructions Interventions: ED Discharge Assessment Last Done: 06/21/18 19:01 The scribe's documentation has been prepared under my direction and personally reviewed by me in its entirety. I confirm that the note above accurately reflects all work, treatment, procedures, and medical decision making performed by me.
[2018-06-24 08:32] LABS: Basophils # (auto) 0.02 K/uL (0-0.2); Basophils % (auto) 0.2 %; Eosinophils # (auto) 0.12 K/uL (0-0.5); Eosinophils % (auto) 1.4 %; Hematocrit (blood only) 47.8 % (37-47); Hemoglobin 16.4 g/dL (12.0-16.0); Immature Granulocytes # (auto) 0.04 K/uL (0.00-0.02); Immature Granulocytes % (auto) 0.5 %; Lymphocytes # (auto) 1.76 K/uL (1.2-3.4); Lymphocytes % (auto) 20.3 %; Mean Corpuscular Hgb Conc 34.3 g/dL (32-36); Mean Corpuscular Volume 90.9 fL (80-100); Mean Platelet Volume 10.5 fL (7.4-10.4); Monocytes # (auto) 0.76 K/uL (0.11-0.59); Monocytes % (auto) 8.8 %; Neutrophils # (auto) 5.96 K/uL (1.4-6.5); Neutrophils % (auto) 68.8 %; Platelet Count 250 K/uL (130-400); RDW Standard Deviation 43.1 fL (36.4-46.3); Red Blood Count 5.26 M/uL (4.2-5.4); White Blood Count 8.66 K/uL (4.8-10.8)
[2018-06-24 09:07] LABS: BUN Creatinine Ratio 11.5 (10-20); Calcium 8.8 mg/dl (8.5-10.1); Creatinine Clr Calc Pharmacy 47.3 ml/min; Est GFR (African American) 58.8; Est GFR (Non-African American) 50.7; Potassium 3.6 mmol/L (3.5-5.1)
[2018-06-24] MEDS: ENOXAPARIN INJ 40 MG/0.4 ML SYR SQ SCH (09:21)
[2018-06-24] MEDS: guaiFENesin 600 MG TABCR PO SCH ×2 (09:21→20:46)
--- NOTE | 2018-06-24 17:12 | Hospitalist Progress Note ---
Date of Service June 24, 2018 Assessment & Plan (1) Peripheral vertigo: DD: Symptoms 2/2 acute sinusitis, serous otitis media vs vestibular neuritis vs menieres, BPPV CT Head:No acute intracranial abnormality. Head CTA:No evidence of aneurysm, focal vessel occlusion, or significant stenosis of the intracranial arteries. Neck CTA: No evidence of dissection, focal vessel occlusion, or significant stenosis of the cervical arteries. MRI IAC: Unremarkable MRI of the brain for age. No abnormality within the internal auditory canals. Continue PT/OT--Matty Fall precuations Appreciate Neurology Input Meclizine PRN Needs FU ENT on 2018 at 9:55Am (2) Sinusitis: Continue levaquin 750mg daily for acute sinusitis monitor UTI Dysuria resolved Urine Culture: Citrobacter Kssery and Morganii On Levaquin (3) Serous otitis media: Continue Abx ENT FU as outpatient (4) DVT prophylaxis: SQ lovenox Code Status Full Code Disposition: To be determined Follow up: Dr. Del Rio upon discharge on Jun 29, 2018 at 12:45 PM Subjective Patient is seen and examined at bedside Dizziness better today but still has some balance issues Dysuria resolved Has facial tenderness Denies chest pain, dyspnea No other comaplints Had PT/OT today Physical Exam 2 Vital Signs (Past 24 Hours): Last Vital Signs Temp 36.9 C 06/24/18 14:57 Pulse 83 06/24/18 14:57 Resp 18 06/24/18 14:57 BP 138/84 06/24/18 14:57 Pulse Ox 95 06/24/18 14:57 Physical Exam: Physical Exam: Vitals signs as noted above General Appearance:Moderately built and nourished, no apparent distress Head: normocephalic, Atraumatic, +maxillary tenderness Eyes: normal inspection, EOMI Neck: supple, Trachea midline Respiratory/Chest: Normal breath sounds, CTA Cardiovascular: S1, S2, No murmur Abdomen/GI:Soft, Non tender, Bowel sounds present Extremities/Musculoskelatal:normal inspection, no edema Neurologic/Psych:AAOX3, grossly no focal neurological deficits Skin: normal color, warm Results & Data Laboratory Results Short CBC 06/24/18 Range/Units 08:20 WBC 8.66 (4.8-10.8) K/uL Hgb 16.4 H (12.0-16.0) g/dL Hct 47.8 H (37-47) % Plt Count 250 (130-400) K/uL BMP 06/24/18 08:20 Sodium 138 Potassium 3.6 Chloride 105 Carbon Dioxide 26 BUN 12 Creatinine 1.07 Glucose 99 Calcium 8.8 _ (1) Peripheral vertigo Laterality: right Qualified Code(s): H81.391 - Other peripheral vertigo, right ear (2) Sinusitis Sinusitis location: maxillary Chronicity: acute Recurrence: non-recurrent Qualified Code(s): J01.00 - Acute maxillary sinusitis, unspecified (3) Serous otitis media Chronicity: acute Laterality: right Recurrence: non-recurrent Qualified Code(s): H65.01 - Acute serous otitis media, right ear
[2018-06-24] MEDS: CALCIUM CARBONATE 500 MG CHEWABLE TAB PO PRN (20:46)
[2018-06-24] MEDS: levoFLOXacin 750 MG TAB PO SCH (20:46)
[2018-06-25 07:35] LABS: BUN Creatinine Ratio 16.5 (10-20); Calcium 8.4 mg/dl (8.5-10.1); Creatinine Clr Calc Pharmacy 49.7 ml/min; Est GFR (African American) 62.3; Est GFR (Non-African American) 53.8; Potassium 3.7 mmol/L (3.5-5.1)
[2018-06-25] MEDS: guaiFENesin 600 MG TABCR PO SCH (09:00)
[2018-06-25] MEDS: ENOXAPARIN INJ 40 MG/0.4 ML SYR SQ SCH (09:00)
[2018-06-25 11:13] VITALS: TEMP 98.2; O2SAT 96
[2018-06-25] MEDS: CALCIUM CARBONATE 500 MG CHEWABLE TAB PO PRN (13:17)
--- NOTE | 2018-06-25 13:33 | Hospitalist Progress Note ---
Date of Service June 25, 2018 Assessment & Plan (1) Peripheral vertigo: DD: Symptoms 2/2 acute sinusitis, serous otitis media vs vestibular neuritis vs menieres, BPPV CT Head:No acute intracranial abnormality. Head CTA:No evidence of aneurysm, focal vessel occlusion, or significant stenosis of the intracranial arteries. Neck CTA: No evidence of dissection, focal vessel occlusion, or significant stenosis of the cervical arteries. MRI IAC: Unremarkable MRI of the brain for age. No abnormality within the internal auditory canals. Continue PT/OT--Matty Ba precuations Appreciate Neurology Input Meclizine PRN Needs FU ENT on 2018 at 9:55Am Continue PT upon discharge (2) Sinusitis: Continue levaquin 750mg daily for acute sinusitis monitor UTI Dysuria resolved Urine Culture: Citrobacter Kssery and Morganii On Levaquin (3) Serous otitis media: Continue Abx ENT FU as outpatient (4) DVT prophylaxis: SQ lovenox Code Status Full Code Disposition: To be determined Follow up: Dr. Del Rio upon discharge on Jun 29, 2018 at 12:45 PM Subjective Patient is seen and examined at bedside Doing much better today Dizziness improved Did well with PT today No new complaints facial tenderness improving Denies chest pain, dyspnea, dysuria Eager to get discharged Physical Exam 2 Vital Signs (Past 24 Hours): Last Vital Signs Temp 36.8 C 06/25/18 11:12 Pulse 85 06/25/18 11:12 Resp 17 06/25/18 11:12 BP 126/76 06/25/18 11:12 Pulse Ox 96 06/25/18 11:12 Physical Exam: Physical Exam: Vitals signs as noted above General Appearance:Moderately built and nourished, no apparent distress Head: normocephalic, Atraumatic, +mild maxillary tenderness Eyes: normal inspection, EOMI Neck: supple, Trachea midline Respiratory/Chest: Normal breath sounds, CTA Cardiovascular: S1, S2, No murmur Abdomen/GI:Soft, Non tender, Bowel sounds present Extremities/Musculoskelatal:normal inspection, no edema Neurologic/Psych:AAOX3, grossly no focal neurological deficits Skin: normal color, warm Results & Data Laboratory Results [facility] 06/25/18 06:41 Sodium 138 Potassium 3.7 Chloride 106 Carbon Dioxide 23 BUN 17 Creatinine 1.02 Glucose 99 Calcium 8.4 L _ (1) Peripheral vertigo Laterality: right Qualified Code(s): H81.391 - Other peripheral vertigo, right ear (2) Sinusitis Sinusitis location: maxillary Chronicity: acute Recurrence: non-recurrent Qualified Code(s): J01.00 - Acute maxillary sinusitis, unspecified (3) Serous otitis media Chronicity: acute Laterality: right Recurrence: non-recurrent Qualified Code(s): H65.01 - Acute serous otitis media, right ear
--- NOTE | 2018-06-25 13:43 | Discharge Summary ---
Date of Service June 25, 2018 Admission HPI Per Admitting Provider This is a 73 year old female with significant PMH of BPPV and Gerd who presents to [facility] ED secondary to vertigo like sx x 1 day. Patient awoke at 2am with dizziness, spinning like sensation. Took meclizine with out relief. At 6am tried meclizine again with zofran with out relief. Further had N/V, R sided SOLIS , photophobia, R ear discomfort. Sx made worse with going from lying to sitting or sitting to standing. Unsteady, off balance and unable to walk. Symptoms not effected with head movements to side. Pt has hx of vertigo before requiring ED visits. 3rd episode in last 3 years. at bedsideUsually resolves with meclizine and zofran. States this vertigo feels different. Further complains of sinus pressure and dysuria. Denies change in vision or acute change in hearing. Notes that she has a chronic R hearing deficit. Denies recent illness or URI, sick contacts, f/c/s, syncope or pre-syncope, lightheaded, chest pain, sob, sore throat, abdominal pain, diarrhea. Prior to today appetite had been normal. Denies hx of tobacco use, +daily < 4 oz glass wine with dinner. +FH of Hemorrhagic CVA in sister which was fatal, unknown cause. Admission Exam Per Admitting Provider Gen: WD/WN, F, +acute distress with dizziness, sitting up in bed, pleasant, conversing easily Head: Normocephalic, Atraumatic Eyes: Sclera normal, no conjunctival injection, PERRLA, EOMI, +photophobia ENT: Gross hearing intact, +pain to palpation R tragus/mastoid, +R maxillary sinus pressure, b/L TM visualized, +serous otitis R, +tortorous EAC, normal pharynx, mucous membranes moist Neck: supple, no adenopathy, No JVD, no bruit, Resp: Clear to auscultation b/l, no wheeze, rales, rhonchi. 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 No focal neuro deficits. : deferred Principal Diagnosis Discharge Information Discharge Diagnosis Vertigo Sinusitis UTI Discharge Goals Decrease discomfort,Improve disease control, Improve function Discharge Activity Limitations Resume your previous activity Discharge Data Allergies Allergy/AdvReac Type Severity Reaction Status Date / Time amoxicillin Allergy Severe hives Verified 06/21/18 18:55 morphine Allergy Severe CHEST Verified 06/21/18 13:20 TIGHTNESS, RASH, DYSPNEA ampicillin Allergy Unknown SEVERE Verified 06/21/18 13:20 HIVES chicken derived Allergy Unknown diarrhea Verified 06/21/18 18:55 alendronate sodium AdvReac Unknown GI SYMPTOMS Verified 06/21/18 13:20 black pepper AdvReac Unknown COUGHING Verified 06/21/18 13:20 Consultations 06/21/18 17:36 ED Decision to Admit Stat 06/21/18 19:34 Consult Case Management - Discharge Planning Routine Consult Neurology Routine Procedures Performed CT head: No acute intracranial abnormality. CXR: 1. Mild cardiomegaly. No cortes volume overload or pulmonary edema. 2. Suspected minimal bibasilar atelectasis. Head CTA: No evidence of aneurysm, focal vessel occlusion, or significant stenosis of the intracranial arteries. Neck CTA: No evidence of dissection, focal vessel occlusion, or significant stenosis of the cervical arteries. Internal Auditory Canal MRI: 1. Unremarkable MRI of the brain for age. 2. No abnormality within the internal auditory canals. Ordered Studies 06/21/18 12:21 CT angio head w con Stat CT angio neck with con Stat CT head/brain wo con Stat 06/22/18 12:53 MR brain IAC wo/w con Routine Hospital Course (1) Peripheral vertigo: DD: Symptoms 2/2 acute sinusitis, serous otitis media vs vestibular neuritis vs menieres, BPPV CT Head:No acute intracranial abnormality. Head CTA:No evidence of aneurysm, focal vessel occlusion, or significant stenosis of the intracranial arteries. Neck CTA: No evidence of dissection, focal vessel occlusion, or significant stenosis of the cervical arteries. MRI IAC: Unremarkable MRI of the brain for age. No abnormality within the internal auditory canals. Continue PT/OT--Matty Fall precuations Appreciate Neurology Input Meclizine PRN Needs FU ENT on 2018 at 9:55Am Continue PT upon discharge (2) Sinusitis: Continue levaquin 750mg daily for acute sinusitis monitor UTI Dysuria resolved Urine Culture: Citrobacter Kssery and Morganii On Levaquin (3) Serous otitis media: Continue Abx ENT FU as outpatient (4) DVT prophylaxis: SQ lovenox Code Status Full Code Disposition: To be determined Follow up: Dr. Del Rio upon discharge on Jun 29, 2018 at 12:45 PM Total Time Total Time Spent Total Time Spent (In Minutes): 39 minutes Total Time Includes: Examination of the Patient, Discharge Planning, Medication Reconciliation, Communication With Other Providers and Other Discharge Plan Discharge Items Patient Disposition: Home - Home Health Services Reason For Visit: VERTIGO Discharge Diagnosis: Vertigo Sinusitis UTI Condition: Fair Discharge Goals: Decrease discomfort, Improve disease control and Improve function Activity: Resume your previous activity Exercise/Sports: Gradually increase as tolerated Non-emergency contact: Primary Care Provider and Specialist Call non-emergency contact if: you have any medication questions, your symptoms worsen, your pain is not controlled, your pain is worsening, your pain is unusual for you, your pain is concerning for you and you have a fever Diet: Heart Healthy Addtl Provider Instructions: Follow up with your PCP Dr. Del Rio on Jun 29, 2018 at 12:45 PM Follow up with your ENT surgeon on Jun 30, 2018 at 9:55Am Complete the antibiotic course as prescribed Seek immediate medical attention if your symptoms reoccur or worsen Prescriptions: New levofloxacin 750 mg Tablet 750 mg PO DAILY@2100 6 Days Qty: 6 RF: 0 guaifenesin [Mucinex] 600 mg Tablet Extended Release 12hr 600 mg PO Q12H 5 Days Qty: 10 RF: 0 Continue meclizine 25 mg tablet 25 mg PO TID PRN (Reason: Dizziness) RF: 0 Stand-Alone Forms: [facility] Discharge Orders: Discharge Order (Routine); Ordered 06/25/18 Ordered By: Anmol Miranda Admission Data Admit Date/Time: 06/21/18 18:15 Attending Provider: Anmol Miarnda Admit Provider: Iliana Stone Primary Care Provider: Tan Del Rio Other Providers: Iliana Stone ; Nixon Hanson ; Pete Candelaria Service: Telemetry Other Interventions: Discharge Summary Assessment (RN) Last Done: 06/25/18 13:54 Pending Studies at Discharge: No DC Date/Time DO NOT enter until pt leaves facility: 06/25/18 14:52
[2018-06-25 13:55] VITALS: BP 107/66; PULSE 91
== END 2018-06-25 14:52 | disposition home health service (06) | DRG 149 ==
LOC: ED 11:44 → SUATTDRO 18:15 → 2S 18:15 → 2N 06-22 00:35